=== PATIENT | male | born 1960 | race Caucasian/White ===

== ENCOUNTER 2017-10-27 09:51 | Day surgery (SDC) | payer OTHER ==
[~2017-10-27] VITALS: Ht 182.9 cm; Wt 66.9 kg
[~2017-10-27 09:51] MED LIST: ACET325 PO; ACET500; ACET500 PO; ALBU.083IS; ALBU3IS INH; ALBU90I; ALBU90OI; ALBU90OI INH; ALBU90OI61 INH; AMIT25 PO; AMOCLA875 PO; AZIT250 PO; Advair Hfa 230-12 GM; BACL10; BACL10 PO; BISA5EC PO; CEPH500 PO; CIPDEXSU OT; COMBIVENT RESPIM4 GM INH; CRUTCH4 USE; CULTURELLE1 EACH PO; CYCL10; CYCL10 PO; CYCL25; Colace100 MG PO; DIAZ5 PO; DICL250 PO; DIVA500EC PO; DOXY100 PO; DULO60; DULO60 PO; Dazidox10 MG PO; ENOX40I SC; EPIPEN0.3 MG/0.3; Esgic Tablet1 EACH PO; FIBE4P PO; FLUSAL2505 INH; GABA100 PO; HYDACE10B PO; HYDACE5 PO; HYDHOMSY PO; HYDPAM50 PO; HYDR-86 PO; Hydrocodone-Ap1 EA20 PO; IBUP600 PO; IBUP800; IBUP800 PO; IPRA.06NI; LAVAP17G PO; LEVE500 PO; LEVFLO500 PO; LEVO750 PO; LORA1 PO; META800 PO; METH10 PO; MULVITMIND PO; Milk Of Ma800 MG/5 M PO; NAPR500 PO; NAPR500ERA PO; NAPR550 PO; NEOPOLHYDS OT; NICO21TP TOP; NICO7 TOP; Norco 5-325 Ta1 EACH PO; OFLO.3OTSO AU; OXYACE5T PO; OXYACE7.5T PO; OXYC10ER; OXYC10ER PO; OXYC10TA19 PO; OXYC15ER PO; OXYCODONE HCL E10 MG PO; Omeprazole20 M1 PO; PANT40 PO; PENVK500 PO; PRED10 PO; PRED20 PO; PREG100 PO; PREG150 PO; PREG200 PO; PREG50 PO; PREVNAR; PROACE100 PO; PROM25 PO; Prednisone20 MG PO; Pulmicort0.5 MG/2 M IH; ROBITUSSIN100 MG/5 M PO; ROXICODONE5 MG PO; RXCEPH500 PO; RXHYDACE PO; RXOXYACE PO; SACC250C PO; SPIRIVA RESPIMAT4 G1 INH; SULTRIDS PO; TIOT18; TOPI100 PO; TOPI25 PO; TOPIRAMATE ER200 MG PO; TRAACE PO; TRAM50 PO; TRAZ100 PO; TRAZ50; Ventolin Soln3 ML INH; Ventolin5 MG/1 ML; Ventolin5 MG/1 ML IH; Vibramycin100 MG PO; XARELTO15 MG PO; Zithromax250 MG PO; Zosyn 4.54.5 GM/100 IV
[2017-10-27] MEDS ORDERED: BACL10 (10:16)
== END 2017-10-27 11:59 | disposition home or self-care (01) ==
LOC: ORSCSDS 09:51
PROVIDERS: Internal Medicine Gastroenterology
PROC: 0DBN8ZX Excision of Sigmoid Colon, Via Natural or Artificial Opening Endoscopic, Diagnostic (ICD-10-PCS; principal; 2017-10-27 11:15)
PROC: 0DBH8ZX Excision of Cecum, Via Natural or Artificial Opening Endoscopic, Diagnostic (ICD-10-PCS; principal; 2017-10-27 11:15)
DX: Z12.11 Encounter for screening for malignant neoplasm of colon (principal); D12.0 Benign neoplasm of cecum; K63.5 Polyp of colon; K64.8 Other hemorrhoids; N40.0 Benign prostatic hyperplasia without lower urinary tract symptoms; J44.9 Chronic obstructive pulmonary disease, unspecified; G40.909 Epilepsy, unspecified, not intractable, without status epilepticus; F32.9 Major depressive disorder, single episode, unspecified; F17.210 Nicotine dependence, cigarettes, uncomplicated; Z99.81 Dependence on supplemental oxygen; Z79.899 Other long term (current) drug therapy
CPT/HCPCS: 88305; J7120

== ENCOUNTER 2018-10-10 15:48 | Inpatient (IN) | payer OTHER ==
[~2018-10-10] VITALS: Ht 185.4 cm; Wt 64.8 kg
[2018-10-10 16:35] LABS: BASOPHILS ABSOLUTE AUTO 0.01 K/mm3 (0.00-0.23); BASOPHILS PERCENT AUTO 0 % (0-2); EOSINOPHILS ABSOLUTE AUTO 0.04 K/mm3 (0.00-0.68); EOSINOPHILS PERCENT AUTO 1 % (0-6); Hematocrit 50.7 % (37.0-53.0); IMMATURE GRAN ABSOLUTE AUTO 0.04 K/mm3 (0.00-0.10); IMMATURE GRAN PERCENT AUTO 1 % (0-1); LYMPHOCYTES ABSOLUTE AUTO 1.09 K/mm3 (0.84-5.20); LYMPHOCYTES PERCENT AUTO 16 % (21-46); MONOCYTES ABSOLUTE AUTO 0.82 K/mm3 (0.16-1.47); MONOCYTES PERCENT AUTO 12 % (4-13); Mean Corpuscular HGB 32.7 pg (26.0-34.0); Mean Corpuscular HGB Conc 31.6 g/dL (31.5-36.5); Mean Corpuscular Volume 104 fL (80-100); Mean Platelet Volume 9.6 fL (9.1-12.4); NEUTROPHILS ABSOLUTE AUTO 5.01 K/mm3 (1.96-9.15); NEUTROPHILS PERCENT AUTO 72 % (41-73); Platelet Count 172 K/mm3 (150-400); RDW Coefficient Variation 13.7 % (11.7-14.2); Red Blood Cell Count 4.89 M/mm3 (4.30-5.90); White Blood Cell Count 7.01 K/mm3 (4.00-11.30)
[2018-10-10 17:13] LABS: Alanine Aminotransfer (ALT/SGP 196 U/L (12-78); Albumin, Blood 3.1 g/dL (3.4-5.0); Albumin/Globulin Ratio 0.7 (0.8-1.8); Alk Phos 74 U/L (50-136); Anion Gap 4 mmol/L (6-16); Aspartate Aminotrans (AST/SGOT 103 U/L (12-37); Bilirubin, Total 0.4 mg/dL (0.1-1.0); Blood Urea Nitrogen 16 mg/dL (8-24); Bun/Creatinine Ratio 20.5 (12.0-20.0); CO2, Blood 42 mmol/L (21-32); Calcium, Blood 9.5 mg/dL (8.5-10.1); Chloride, Blood 93 mmol/L (98-108); Creatinine, Blood 0.78 mg/dL (0.60-1.20); Globulin, Blood 4.7 g/dL (2.2-4.0); Glomerular Filtration Rate >60 (60-); Glucose, Blood 94 mg/dL (70-99); Potassium, Blood 5.4 mmol/L (3.5-5.5); Sodium, Blood 139 mmol/L (136-145); Total Protein, Blood 7.8 g/dL (6.4-8.2); Troponin I 0.024 ng/mL (0.000-0.040)
[2018-10-10 17:18] LABS: PCO2 Arterial 80.1 mmHg (35-45); PO2 Arterial 73.2 mmHg (80-100); pH Blood Arterial 7.36 (7.35-7.45)
[2018-10-10 17:33] LABS: Influenza A Negative (NEGATIVE); Influenza B Negative (NEGATIVE)
[2018-10-10] MEDS ORDERED: LEVE500 PO (18:38)
--- NOTE | 2018-10-11 06:47 | NUR ---
SHIFT SUMMARY PT SLEEPING IN ROOM RESTING COMFORTABLY. PT HAS HAD NO ACUTE CHANGES IN STATUS SINCE ARRIVAL. REMAINS ON O2 VIA NC AT 4L W/ SATS 89-91%. PT SLEPT T/O NIGHT. SOME DIAPHORESIS, BUT REMAINS AFEBRILE. DENIES ANY CHEST PAIN. PT REFUSED TO CHANGE INTO GOWN AND REMAINS IN OWN CLOTHING. EKG DONE THIS AM. NO ACUTE CHANGES NOTED. CALL LIGHT IN REACH. BED ALARM ON FOR SAFETY.
--- NOTE | 2018-10-11 10:23 | NUR ---
The pt has been sweaty and warm. Three extra blankets were removed from him this morning at the beginning of the shift; He was still sweaty with just a sheet and one blanket on him, but temperature was taken and measured 98.7 temporally. He states he does not feel like he has a fever; he feels cold.
--- NOTE | 2018-10-11 10:41 | NUR ---
The pt is sleeping, apparently comfortably. His mother Susannah Juarez is at the bedside and I spoke with her and answered her questions regarding the plan of care and the pt's condition. she states that the pt smoked yesterday, but that he has been cutting back and trying to quit.
--- NOTE | 2018-10-11 13:27 | NUR ---
Noted SpO2 of 83-86% while sleeping on 4 l/min O2 delivery via n.c. Awakened pt and asked him to deep breathe and cough. He did; moist, productive cough noted, but the pt swallowed the sputum so I did not evaluate its quality. SpO2 is now 88-90% while he is sleeping while on 5 l/min O2 delivery. He states that he feels cold, and I also noticed some intermittent fine tremors of his arms and hands. Skin is warm to the touch, temperature is 99.3 at this time. He has no other complaints than feeling " a little nippy". He is only wanting to sleep at this time.
--- NOTE | 2018-10-11 14:42 | NUR ---
Telephone report given to Christiano Lara RN at this time.
--- NOTE | 2018-10-11 15:31 | NUR ---
The pt was transferred to room 310 in the bed. He awakens easily, but wants to nap, he says. States that he will probably sleep through the night as well since he's been woken up so often. States he just haven't been feeling very well lately.
--- NOTE | 2018-10-11 17:06 | NUR ---
SHIFT SUMMARY. 1500 TRANSFER FROM PCU TO MEDICAL FLOOR. PT BROUGHT UP IN BED, BED IN ROOM MOVED OUT, NO MANUAL TRANSFER REQUIRED. PT IS ON 4L O2, SLEEPING HEAVILY, AWAKENS TO VERBAL STIMULATION, DIAPHORETIC. PT STATES THAT HE "SWEATS WHEN HE SLEEPS." 1730 PT SPO2 85-87% ON 6L O2 HUMIDIFIED NC, PT LAYING ON SIDE. PT INSTRUCTED TO COUGH, COUGH WAS DRY AND NON PRODUCTIVE. PT HOB ELEVATED TO 45 DEGREES, BREATHING SHALLOW, NO DISTRESS.
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
--- NOTE | 2018-10-12 18:12 | NUR ---
SHIFT SUMMARY PT HAS HAD NO ACUTE CHANGES THIS SHIFT, NO COMPLAINTS OF ANY KIND. PT HAS SLEPT T/O MOST OF SHIFT AND REFUSED MOST MEALS, BUT STATES HE IS FEELING BETTER. PT IS BEDRESTING AT THIS TIME, WILL CONT TO MONITOR UNTIL REPORT GIVEN TO JASMIN COLLINS.
--- NOTE | 2018-10-13 04:45 | NUR ---
SHIFT SUMMARY NO APPARENT ACUTE CHANGES NOTED SO FAR THIS SHIFT. PT APPEARED TO BE LESS AGITATED THIS NIGHT. ATTEMPTING TO COUPLE CARE TO REDUCE WAKING PT APPEARS TO BE IMPROVING MOOD. PT WAS MUCH MORE ALERT THIS NIGHT THEN PREVIOUS WHEN ADMINISTERING NIGHT MEDICATIONS. PT HAS APPEARED TO SLEEP COMFORTABLY THROUGHOUT THE NIGHT. NO APPARENT SIGNS OF ACUTE DISTRESS. ABLE TO MAKE NEEDS KNOWN AND CALL LIGHT IN REACH.
[2018-10-13 05:51] LABS: Anion Gap 5 mmol/L (6-16); Blood Urea Nitrogen 25 mg/dL (8-24); Bun/Creatinine Ratio 35.2 (12.0-20.0); CO2, Blood 33 mmol/L (21-32); Calcium, Blood 8.6 mg/dL (8.5-10.1); Chloride, Blood 102 mmol/L (98-108); Creatinine, Blood 0.71 mg/dL (0.60-1.20); Glomerular Filtration Rate >60 (60-); Glucose, Blood 132 mg/dL (70-99); Potassium, Blood 4.5 mmol/L (3.5-5.5); Sodium, Blood 140 mmol/L (136-145)
--- NOTE | 2018-10-13 17:09 | NUR ---
SHIFT SUMMARY PT HAS HAD NO ACUTE CHANGES THIS SHIFT, NO COMPLAINTS OF ANY KIND. PT HAS SLEPT T/O MOST OF SHIFT, IS BEDRESTING AT THIS TIME- WILL CONT TO MONITOR UNTIL REPORT GIVEN TO JASMIN COLLINS.
--- NOTE | 2018-10-14 05:27 | NUR ---
SHIFT SUMMARY ASSESSMENT HAS REMAINED UNCHANGED. O2 IN PLACE, RESP E/U. PT REPORTS SOB WITH EXERTION. DENIES AT REST. LUNGS WITH WHEEZES T/O. BREATHING TREATMENTS SCHEDULED. PER RT, PT REFUSES MOST OF THEM. BIOX IN PLACE, SATS WNL. PT MEDICATED FOR CHRONIC BACK PAIN X1. PT SLEPT MOST OF THE NIGHT. WILL CONTINUE TO MONITOR AND REPORT TO ONCOMING RN.
--- NOTE | 2018-10-14 17:35 | NUR ---
SHIFT SUMMARY PT HAS HAD NO ACUTE CHANGES THIS SHIFT, NO COMPLAINTS OF ANY KIND. PT HAS SLEPT T/O MOST OF SHIFT, STATES HE IS FEELING BETTER. PT IS SLEEPING AT THIS TIME, WILL CONT TO MONITOR UNTIL REPORT GIVEN TO JASMIN COLLINS.
--- NOTE | 2018-10-15 04:09 | NUR ---
SHIFT SUMMARY PT A&OX3. COMPLAINTS OF LOWER BACK PAIN. MEDICATED PAIN PER EMAR WITH GOOD RELIEF. CONTINUES TO COUGH UP THIN, GREENISH SPUTUM. ON 4L VIA NC. SATURATING >90%. USED URINAL TO VOID. SLEPT WELL T/O SHIFT. WILL CONTINUE TO MONITOR.
[2018-10-15 05:50] LABS: BASOPHILS ABSOLUTE AUTO 0.01 K/mm3 (0.00-0.23); BASOPHILS PERCENT AUTO 0 % (0-2); EOSINOPHILS ABSOLUTE AUTO 0.08 K/mm3 (0.00-0.68); EOSINOPHILS PERCENT AUTO 1 % (0-6); Hematocrit 46.7 % (37.0-53.0); Hemoglobin 15.8 g/dL (13.5-17.5); IMMATURE GRAN ABSOLUTE AUTO 0.04 K/mm3 (0.00-0.10); IMMATURE GRAN PERCENT AUTO 0 % (0-1); LYMPHOCYTES ABSOLUTE AUTO 2.81 K/mm3 (0.84-5.20); LYMPHOCYTES PERCENT AUTO 30 % (21-46); MONOCYTES ABSOLUTE AUTO 0.71 K/mm3 (0.16-1.47); MONOCYTES PERCENT AUTO 8 % (4-13); Mean Corpuscular HGB 32.8 pg (26.0-34.0); Mean Corpuscular HGB Conc 33.8 g/dL (31.5-36.5); Mean Platelet Volume 9.5 fL (9.1-12.4); NEUTROPHILS ABSOLUTE AUTO 5.62 K/mm3 (1.96-9.15); NEUTROPHILS PERCENT AUTO 61 % (41-73); Platelet Count 193 K/mm3 (150-400); RDW Coefficient Variation 13.7 % (11.7-14.2); RDW Standard Deviation 48.6 fL (35.1-46.3); Red Blood Cell Count 4.81 M/mm3 (4.30-5.90); White Blood Cell Count 9.27 K/mm3 (4.00-11.30)
[2018-10-15 06:12] LABS: Anion Gap 4 mmol/L (6-16); Blood Urea Nitrogen 23 mg/dL (8-24); Bun/Creatinine Ratio 27.9 (12.0-20.0); CO2, Blood 32 mmol/L (21-32); Calcium, Blood 8.3 mg/dL (8.5-10.1); Chloride, Blood 100 mmol/L (98-108); Creatinine, Blood 0.82 mg/dL (0.60-1.20); Glomerular Filtration Rate >60 (60-); Glucose, Blood 83 mg/dL (70-99); Mean Corpuscular Volume 97 fL (80-100); Potassium, Blood 4.1 mmol/L (3.5-5.5); Sodium, Blood 136 mmol/L (136-145)
--- NOTE | 2018-10-15 11:36 | NUR ---
SHIFT SUMMARY/DC PT HAS HAD NO ACUTE CHANGES THIS SHIFT, MEDICATED 1X FOR CHRONIC BACK PAIN, NO OTHER COMPLAINTS OF ANY KIND. REVIEWED DC INSRTUCTIONS, EDUCATED THE IMPORTANCE OF HOME 02 COMPLIANCE, PT VERBALIZED UNDERSTANDING. PT IS WALKING IN HALLS-WAITING FOR MOM TO PICK HIM UP AT THIS TIME.
--- NOTE | 2018-10-15 15:30 | NUR ---
DC PT WALKED OUT FOR DC @ 1210 W/HOME O2 IN PLACE
== END 2018-10-15 12:49 | disposition home or self-care (01) | DRG 189 ==
LOC: ER 15:48 → PCU 19:18 → MEDS 10-11 15:00
PROVIDERS: Emergency Medicine; Hospitalist; Physician Assistant; ADMIT Internal Medicine
DX: J96.21 Acute and chronic respiratory failure with hypoxia (principal); G93.41 Metabolic encephalopathy; J44.1 Chronic obstructive pulmonary disease with (acute) exacerbation; J96.22 Acute and chronic respiratory failure with hypercapnia; G40.909 Epilepsy, unspecified, not intractable, without status epilepticus; G89.29 Other chronic pain; M54.9 Dorsalgia, unspecified; F17.210 Nicotine dependence, cigarettes, uncomplicated; F32.9 Major depressive disorder, single episode, unspecified; Z99.81 Dependence on supplemental oxygen; Z88.8 Allergy status to other drugs, medicaments and biological substances; Z88.6 Allergy status to analgesic agent; Z91.038 Other insect allergy status; Z79.891 Long term (current) use of opiate analgesic; Z79.899 Other long term (current) drug therapy
CPT/HCPCS: 36415; 36600; 71046; 80048; 80053; 82803; 83880; 84484; 85025; 87804; 93005; 93010; 94640; 94644; 94660; 94760; 94762; 96361; 96374; 97161; 97530; 99285-25; J1650; J2930; J7120

== ENCOUNTER 2018-10-28 18:04 | Inpatient (IN) | payer OTHER ==
[~2018-10-28] VITALS: Ht 185.4 cm; Wt 69.0 kg
[2018-10-28 19:13] LABS: BASOPHILS ABSOLUTE AUTO 0.02 K/mm3 (0.00-0.23); BASOPHILS PERCENT AUTO 0 % (0-2); EOSINOPHILS ABSOLUTE AUTO 0.01 K/mm3 (0.00-0.68); EOSINOPHILS PERCENT AUTO 0 % (0-6); Hematocrit 49.7 % (37.0-53.0); Hemoglobin 15.3 g/dL (13.5-17.5); IMMATURE GRAN ABSOLUTE AUTO 0.12 K/mm3 (0.00-0.10); IMMATURE GRAN PERCENT AUTO 1 % (0-1); LYMPHOCYTES ABSOLUTE AUTO 0.39 K/mm3 (0.84-5.20); LYMPHOCYTES PERCENT AUTO 2 % (21-46); MONOCYTES PERCENT AUTO 8 % (4-13); Mean Corpuscular HGB 33.6 pg (26.0-34.0); Mean Corpuscular HGB Conc 30.8 g/dL (31.5-36.5); NEUTROPHILS ABSOLUTE AUTO 15.13 K/mm3 (1.96-9.15); NEUTROPHILS PERCENT AUTO 89 % (41-73); NRBC ABSOLUTE 0.02 K/mm3 (0.00-0.02); NRBC Auto 0.1 /100 WBC (0.0-0.2); RDW Coefficient Variation 13.7 % (11.7-14.2); RDW Standard Deviation 56.9 fL (35.1-46.3); Red Blood Cell Count 4.56 M/mm3 (4.30-5.90); White Blood Cell Count 16.97 K/mm3 (4.00-11.30)
[2018-10-28 19:16] LABS: Mean Corpuscular Volume 109 fL (80-100); Mean Platelet Volume 10.9 fL (9.1-12.4); Platelet Count 79 K/mm3 (150-400)
[2018-10-28 19:31] LABS: Alanine Aminotransfer (ALT/SGP 29 U/L (12-78); Albumin, Blood 3.3 g/dL (3.4-5.0); Albumin/Globulin Ratio 0.8 (0.8-1.8); Alk Phos 89 U/L (50-136); Anion Gap 7 mmol/L (6-16); Aspartate Aminotrans (AST/SGOT 31 U/L (12-37); Bilirubin, Total 0.4 mg/dL (0.1-1.0); Blood Urea Nitrogen 18 mg/dL (8-24); Bun/Creatinine Ratio 13.8 (12.0-20.0); CO2, Blood 33 mmol/L (21-32); Chloride, Blood 101 mmol/L (98-108); Ethanol (Alcohol), Blood, Med <3 mg/dL; Glomerular Filtration Rate >60 (60-); Glucose, Blood 176 mg/dL (70-99); Potassium, Blood 4.8 mmol/L (3.5-5.5); Sodium, Blood 141 mmol/L (136-145); Total Protein, Blood 7.3 g/dL (6.4-8.2); Troponin I 0.259 ng/mL (0.000-0.040)
[2018-10-28 20:45] LABS: PCO2 Arterial 46.1 mmHg (35-45); PO2 Arterial 60.8 mmHg (80-100); pH Blood Arterial 7.43 (7.35-7.45)
[2018-10-28 21:02] LABS: Source, Urine Catheter
[2018-10-28 21:03] LABS: U Amphetamine Screen Not Detected; U Barbituate Screen Not Detected; U Benzodiazapine Screen Not Detected; U Buprenorphine Screen Not Detected; U Cannabinoids Screen Not Detected; U Cocaine Screen Not Detected; U Methadone Screen Not Detected; U Methamphetamine Screen Not Detected; U Opiates Screen Not Detected; U Oxycodone Screen DETECTED; U Phencyclidine Screen Not Detected
[2018-10-28 21:04] LABS: Bilirubin, Urine Neg (Neg); Blood, Urine 2+ (Neg); Glucose Qualitative, Urine 2+ (Neg); Ketones, Urine Neg (Neg); Leukocyte Esterase, Urine Neg (Neg); Nitrite, Urine Neg (Neg); Protein, Urine 2+ (Neg); U Propoxyphene Screen Not Detected; Urobilinogen, Urine NORM (Normal)
[2018-10-28 21:05] LABS: Appearance, Urine Clear (Clear); Color, Urine Yellow (P-Yellow)
[2018-10-28 21:11] LABS: Amorphous Light (0-Heavy); Bacteria Few /hpf; Mucus Light (0-Heavy); Red Blood Cells, Urine 0-2 /hpf (0-2); Squamous Epithelial Cells Few /hpf (Few); White Blood Cells, Urine Rare /hpf (0-5)
[2018-10-28 22:21] LABS: Valproic Acid 21.4 ug/mL (50.0-100.0)
[2018-10-28 22:44] LABS: Creatine Kinase MB 9.7 ng/mL (0.0-3.6); Creatine Kinase MB Index 2.4 (0.0-4.0)
[2018-10-28 23:14] LABS: Influenza A Negative (NEGATIVE); Influenza B Negative (NEGATIVE)
--- NOTE | 2018-10-29 01:13 | NUR ---
ASSUMING CARE RECEIVED PT REPORT FROM KARINA CHIRINOS IN THE ER. PT IS ADMITTED DUE TO RESP FAILURE RELATED TO A POSSIBLE OPIOID OD. PER REPORT PT WAS PROVIDED NARCAN BY EMS AND IN THE ER WITH SOME EFFECT. PT IS MINIMALLY RESPONSIVE AND WILL ONLY RESPOND WITH A LARGE AMOUNT OF STIMULI. PT IS UNABLE TO ANSWER QUESTIONS AT THIS TIME. PT WILL STATE THAT HE WANTS TO "BE LEFT ALONE" WITH MOST CARES. PT IS RECEIVING 2 L BOLUSES NS AT THE TIME OF ARRIVAL TO UNIT FOR A TOTAL OF 3L. PT IS ON 3L O2 VIA NC AND IS CURRENTLY SATTING IN THE HIGH 90'S. PT RESPIRATORY RATE IS IN THE 14-20 RANGE. PT HAS A MCCAIN TEMP PROBE IN PLACE AT THIS TIME. PT TEMPERATURE IS 102.2 AT THE TIME OF ARRIVAL TO UNIT. PT WAS PROVIDED RECTAL TYLENOL IN ER JUST PRIOR TO ARRIVAL TO THE UNIT. PT HAS FANS IN PLACE FOR ADDITIONAL COOLING. SHORTLY AFTER ARRIVAL PT TEMP INCREASED TO 102.4. AT THE TIME OF THIS NOTE PT TEMPERATURE DECREASED TO 102.0. PT HR AND BP ARE STABLE AT THIS TIME. ASSUMING CARE OF PT AT THE TIME OF ARRIVAL TO THE UNIT. WILL CONTINUE TO MONITOR PT.
[2018-10-29 04:20] LABS: BASOPHILS ABSOLUTE AUTO 0.01 K/mm3 (0.00-0.23); BASOPHILS PERCENT AUTO 0 % (0-2); EOSINOPHILS PERCENT AUTO 0 % (0-6); Hematocrit 41.8 % (37.0-53.0); Hemoglobin 13.1 g/dL (13.5-17.5); IMMATURE GRAN ABSOLUTE AUTO 0.04 K/mm3 (0.00-0.10); IMMATURE GRAN PERCENT AUTO 0 % (0-1); LYMPHOCYTES ABSOLUTE AUTO 0.69 K/mm3 (0.84-5.20); LYMPHOCYTES PERCENT AUTO 5 % (21-46); MONOCYTES ABSOLUTE AUTO 0.66 K/mm3 (0.16-1.47); MONOCYTES PERCENT AUTO 5 % (4-13); Mean Corpuscular HGB 33.3 pg (26.0-34.0); Mean Corpuscular HGB Conc 31.3 g/dL (31.5-36.5); Mean Platelet Volume 10.6 fL (9.1-12.4); NEUTROPHILS PERCENT AUTO 89 % (41-73); NRBC ABSOLUTE 0.02 K/mm3 (0.00-0.02); NRBC Auto 0.2 /100 WBC (0.0-0.2); Platelet Count 84 K/mm3 (150-400); RDW Coefficient Variation 13.8 % (11.7-14.2); RDW Standard Deviation 54.8 fL (35.1-46.3); Red Blood Cell Count 3.93 M/mm3 (4.30-5.90)
[2018-10-29 04:24] LABS: Mean Corpuscular Volume 106 fL (80-100)
[2018-10-29 04:38] LABS: Alanine Aminotransfer (ALT/SGP 19 U/L (12-78); Albumin, Blood 2.6 g/dL (3.4-5.0); Albumin/Globulin Ratio 0.7 (0.8-1.8); Alk Phos 64 U/L (50-136); Anion Gap 6 mmol/L (6-16); Aspartate Aminotrans (AST/SGOT 38 U/L (12-37); Bilirubin, Total 0.2 mg/dL (0.1-1.0); Blood Urea Nitrogen 13 mg/dL (8-24); Bun/Creatinine Ratio 18.3 (12.0-20.0); CO2, Blood 28 mmol/L (21-32); Calcium, Blood 8.2 mg/dL (8.5-10.1); Chloride, Blood 110 mmol/L (98-108); Creatinine, Blood 0.71 mg/dL (0.60-1.20); Globulin, Blood 3.6 g/dL (2.2-4.0); Glomerular Filtration Rate >60 (60-); Glucose, Blood 123 mg/dL (70-99); Sodium, Blood 144 mmol/L (136-145); Total Protein, Blood 6.2 g/dL (6.4-8.2)
[2018-10-29 04:56] LABS: PCO2 Arterial 59.9 mmHg (35-45); PO2 Arterial 76.3 mmHg (80-100); pH Blood Arterial 7.38 (7.35-7.45)
--- NOTE | 2018-10-29 05:49 | NUR ---
SHIFT SUMMARY NOTE PT HAS REMAINED MINIMALLY RESPONSIVE SINCE ARRIVAL TO THE UNIT. PT WILL AROUSE AND RESPOND IN SINGLE WORD OR SHORT ANSWERS WITH INCREASED STIMULATION. PT REPONSES ARE TYPICALLY PT SAYING "LEAVE ME ALONE" OR GARBLED RESPONSES. PT HAS REMAINED ON 3L O2 VIA NC THROUGHT THE NIGHT. PT SPO2 HAS MAINTAINED IN THE MID TO HIGH 90'S THROUGH THE NIGHT. PT TEMPERATURE BEGAN TO DECREASE AND IS APPROX 99.9 AT THIS TIME. PT HAS NOT BEEN PROVIDED ANY ADDITIONAL DOSES OF TYLENOL AFTER ARRIVAL TO THE UNIT. PT HR AND BP HAVE REMAIEND STABLE THROUGH THE NIGHT. WILL REPORT OFF TO ONCOMING DAY SHIFT NURSE
--- NOTE | 2018-10-29 10:02 | NUR ---
pt very sleepy this am, he wakes when touched, but is very sleepy even when awake, he is irritable, lungs are wheezing t/o, resp even and unlabored sats in the mid 90's on 3 liters 02 via n/c, no cough noted, hrr, monitor in place running sr per monitor, see strip, +1 edema noted to b/l le, ppp+1, cap refill <3sec, vs stable, afebrile, iv sites are clear and patent, btx4 abd flat soft nontender, song cath in place draining yelllow urine, skin c/w/d, not really following commands or cooperating with assessment, did take a sip of water and his keppra and xeralto without diff, call light in reach. status has been changed to pcu, moving now to pcu 13, report given to Bobo COLLINS.
[2018-10-29 12:43] LABS: Valproic Acid 8.1 ug/mL (50.0-100.0)
[2018-10-29] MEDS ORDERED: PANT20 PO (13:51)
[2018-10-29] MEDS ORDERED: OMEPRAZOLE MAGN20 MG PO (13:52)
[2018-10-29] MEDS ORDERED: PREG200 PO (13:53)
[2018-10-29] MEDS ORDERED: D3-20002000 UNIT PO (13:53)
[2018-10-29] MEDS ORDERED: Coq-10100 MG PO (13:54)
[2018-10-29] MEDS ORDERED: MULTI VITAMIN1 EACH PO (13:55)
[2018-10-29] MEDS ORDERED: LEVE500 PO (13:55)
[2018-10-29] MEDS ORDERED: VARE1 PO (13:56)
[2018-10-29] MEDS ORDERED: TIOT18 INH (13:57)
--- NOTE | 2018-10-29 18:53 | NUR ---
ASSUMED CARE PT HAS HAD MENTAL CHANGES TO THE ASSESSMENT, VSS, PT IN NO PAIN, PT ABLE TO DO THREE STEP AMBULATION, PT ABLE TO FOLLOW COMMANDS, PT IS STILL SLEEPY
[2018-10-30 04:16] LABS: BASOPHILS ABSOLUTE AUTO 0.03 K/mm3 (0.00-0.23); BASOPHILS PERCENT AUTO 0 % (0-2); EOSINOPHILS ABSOLUTE AUTO 0.04 K/mm3 (0.00-0.68); EOSINOPHILS PERCENT AUTO 0 % (0-6); Hematocrit 36.7 % (37.0-53.0); Hemoglobin 11.9 g/dL (13.5-17.5); IMMATURE GRAN ABSOLUTE AUTO 0.05 K/mm3 (0.00-0.10); IMMATURE GRAN PERCENT AUTO 0 % (0-1); LYMPHOCYTES PERCENT AUTO 15 % (21-46); MONOCYTES PERCENT AUTO 10 % (4-13); Mean Corpuscular HGB 32.3 pg (26.0-34.0); Mean Corpuscular HGB Conc 32.4 g/dL (31.5-36.5); Mean Platelet Volume 10.9 fL (9.1-12.4); NEUTROPHILS ABSOLUTE AUTO 9.71 K/mm3 (1.96-9.15); NEUTROPHILS PERCENT AUTO 74 % (41-73); Platelet Count 112 K/mm3 (150-400); RDW Standard Deviation 51.4 fL (35.1-46.3); Red Blood Cell Count 3.68 M/mm3 (4.30-5.90); White Blood Cell Count 13.13 K/mm3 (4.00-11.30)
[2018-10-30 04:25] LABS: Mean Corpuscular Volume 100 fL (80-100)
[2018-10-30 04:43] LABS: Anion Gap 6 mmol/L (6-16); Blood Urea Nitrogen 11 mg/dL (8-24); Bun/Creatinine Ratio 16.2 (12.0-20.0); CO2, Blood 31 mmol/L (21-32); Calcium, Blood 8.1 mg/dL (8.5-10.1); Chloride, Blood 111 mmol/L (98-108); Creatinine, Blood 0.68 mg/dL (0.60-1.20); Glomerular Filtration Rate >60 (60-); Glucose, Blood 93 mg/dL (70-99); Potassium, Blood 3.7 mmol/L (3.5-5.5); Sodium, Blood 148 mmol/L (136-145)
--- NOTE | 2018-10-30 06:09 | NUR ---
SHIFT SUMMARY PT ADMITTED FOR RESPIRATORY FAILURE. PT CONTINUES ON IV ABX FOR SEPSIS OF UNKNOWN ORIGIN. HE IS SATTING LOW 90S ON RA, REFUSED TO WEAR ANY O2 LAST NIGHT. HE ALSO HAD A LOW GRADE TEMP BUT REFUSED ANY TYLENOL; THE ROOM WAS WARM SO THE HEAT WAS TURNED DOWN. PT IS PARTIALLY COOPERATIVE WITH CARES. HE IS STILL NPO. NO TELE. PT IS BEING TREATED FOR HIS PULMONARY EMBOLI WITH LOVENOX INJECTIONS. BED ALARM ON FOR IMPULSIVITY, BUT HIS MENTATION APPEARS CLEARER THIS MORNING. HE IS FATIGUED BUT ANSWERS QUESTIONS APPROPRIATELY. WILL CTM UNTIL PASS TO NEXT SHIFT.
--- NOTE | 2018-10-30 10:24 | NUR ---
NURSING PCU DAYSHIFT: Assumed care of pt at approx 0700. A/O, irritable though fairly cooperative w/care, impulsive at times. General weakness noted though able to ambulate w/one staff assist for line management only. Denies any pain/discomfort. Skin is fragile w/scattered bruising on UE's. No tele in place, HRR, no c/o CP/pressure, SBP 130's prior to a.m. meds, no noted edema. Respiratory status fairly stable, O2 sat low 90's on RA, denies dyspnea, occ moist/ENGINEERING GROUP LEADER cough. Abd SNT, minimal appetite, refused breakfast, voiding w/o difficulty. PIV x1, NS TKO. No s/s of acute distress at this time. Call light in reach though pt does not use appropriately, bed alarm set for safety purposes. Seen by PMD, new d/o received. Pt is anticipating possible discharge home this afternoon once lab results are received. Cont to monitor for any changes.
[2018-10-30] MEDS ORDERED: DIVA500ER PO (13:06)
--- NOTE | 2018-10-30 13:11 | NUR ---
NURSING PCU DISCHARGE SUMMARY: No acute changes noted t/o the shift. Lab results received and reviewed by PMD, discharge home d/o received. Pt has verbalized understanding of all written and verbal discharge instructions. PIV dc'd w/cath intact. Rx's being called to pharmacy in [place] per pt request. Pt will be escorted from unit via w/c when pt is dressed and ready. No s/s of acute distress at this time, cont to monitor until discharge is complete.
[2018-10-30] MEDS ORDERED: DULO60 PO (13:12)
[2018-10-30] MEDS ORDERED: XARELTO15 MG PO (13:13)
[2018-10-30] MEDS ORDERED: LEVFLO500 PO (13:14)
== END 2018-10-30 13:40 | disposition home or self-care (01) | DRG 917 ==
LOC: ER 18:04 → PCU 21:47 → ICUW 21:47 → ICUE 23:22 → PCU 10-29 09:57
PROVIDERS: Emergency Medicine; Hospitalist; ADMIT Internal Medicine
DX: T40.2X1A Poisoning by other opioids, accidental (unintentional), initial encounter (principal); I26.99 Other pulmonary embolism without acute cor pulmonale; J96.01 Acute respiratory failure with hypoxia; J44.1 Chronic obstructive pulmonary disease with (acute) exacerbation; N17.9 Acute kidney failure, unspecified; G93.40 Encephalopathy, unspecified; Z99.81 Dependence on supplemental oxygen; G40.909 Epilepsy, unspecified, not intractable, without status epilepticus; Y92.9 Unspecified place or not applicable; F17.210 Nicotine dependence, cigarettes, uncomplicated; R40.2413 Glasgow coma scale score 13-15, at hospital admission; I10 Essential (primary) hypertension; F32.9 Major depressive disorder, single episode, unspecified; R25.1 Tremor, unspecified; G89.29 Other chronic pain; M54.9 Dorsalgia, unspecified; Z79.899 Other long term (current) drug therapy; Z88.6 Allergy status to analgesic agent; Z88.8 Allergy status to other drugs, medicaments and biological substances; Z91.030 Bee allergy status
CPT/HCPCS: 36415; 36600; 51702; 70450; 71045; 71260; 80048; 80053; 80164; 81001; 82550; 82553; 82803; 83605; 83880; 84145; 84146; 84484; 85025; 87040; 87804; 93005; 93010; 94640; 94644; 96361; 96365; 96366; 96367; 96375; 99285-25; G0480; J0456; J0696; J1100; J1650; J1953; J2060; J2310; J7030; J7050; Q9967

== ENCOUNTER → 2020-07-02 | Outpatient (CLI) | payer OTHER ==
[~2020-07-02] MED LIST changes: +Coq-10100 MG PO; +D3-20002000 UNIT PO; +DIVA500ER PO; +MULTI VITAMIN1 EACH PO; +OMEPRAZOLE MAGN20 MG PO; +PANT20 PO; +TIOT18 INH; +VARE1 PO
[2020-07-02 13:43] LABS: BASOPHILS ABSOLUTE AUTO 0.02 K/mm3 (0.00-0.23); BASOPHILS PERCENT AUTO 0 % (0-2); EOSINOPHILS ABSOLUTE AUTO 0.07 K/mm3 (0.00-0.68); EOSINOPHILS PERCENT AUTO 1 % (0-6); Hematocrit 48.1 % (37.0-53.0); Hemoglobin 15.2 g/dL (13.5-17.5); IMMATURE GRAN ABSOLUTE AUTO 0.03 K/mm3 (0.00-0.10); IMMATURE GRAN PERCENT AUTO 0 % (0-1); LYMPHOCYTES ABSOLUTE AUTO 1.27 K/mm3 (0.84-5.20); LYMPHOCYTES PERCENT AUTO 17 % (21-46); MONOCYTES ABSOLUTE AUTO 0.86 K/mm3 (0.16-1.47); MONOCYTES PERCENT AUTO 11 % (4-13); Mean Corpuscular HGB 32.7 pg (26.0-34.0); Mean Corpuscular HGB Conc 31.6 g/dL (31.5-36.5); Mean Corpuscular Volume 103 fL (80-100); NEUTROPHILS ABSOLUTE AUTO 5.34 K/mm3 (1.96-9.15); NEUTROPHILS PERCENT AUTO 70 % (41-73); Platelet Count 173 K/mm3 (150-400); RDW Coefficient Variation 14.9 % (11.7-14.2); RDW Standard Deviation 56.6 fL (35.1-46.3); Red Blood Cell Count 4.65 M/mm3 (4.30-5.90); White Blood Cell Count 7.59 K/mm3 (4.00-11.30)
[2020-07-02 13:45] LABS: Anion Gap Unable to Calculate mmol/L (6-16); Blood Urea Nitrogen 13 mg/dL (8-24); Bun/Creatinine Ratio 12.5 (12.0-20.0); CO2, Blood 42 mmol/L (21-32); Calcium, Blood 9.2 mg/dL (8.5-10.1); Chloride, Blood 100 mmol/L (98-108); Creatinine, Blood 1.04 mg/dL (0.60-1.20); Glomerular Filtration Rate >60 (60-); Glucose, Blood 167 mg/dL (70-99); Potassium, Blood 4.8 mmol/L (3.5-5.5); Sodium, Blood 141 mmol/L (136-145)
[2020-07-02 16:28] LABS: Troponin I <0.017 ng/mL (0.000-0.040)
== END ==
LOC: LAB SHORT 13:29 → LAB EV 13:29
PROVIDERS: Chiropractor
DX: R09.02 Hypoxemia (principal); R06.00 Dyspnea, unspecified
CPT/HCPCS: 80048; 83880; 84484; 85025; 85379

== ENCOUNTER → 2020-07-02 | Outpatient (CLI) | payer OTHER | END | disposition home or self-care (01) | LOC: LAB EV 15:14 → LAB SHORT 15:14 | DX: R06.00 Dyspnea, unspecified (principal); Z20.828 Contact with and (suspected) exposure to other viral communicable diseases | CPT/HCPCS: U0003 ==

== ENCOUNTER → 2021-03-08 | Outpatient (CLI) | payer OTHER ==
[2021-03-08 10:43] LABS: BASOPHILS ABSOLUTE AUTO 0.06 K/mm3 (0.00-0.23); BASOPHILS PERCENT AUTO 0 % (0-2); EOSINOPHILS PERCENT AUTO 1 % (0-6); Hemoglobin 15.7 g/dL (13.5-17.5); IMMATURE GRAN ABSOLUTE AUTO 0.05 K/mm3 (0.00-0.10); IMMATURE GRAN PERCENT AUTO 0 % (0-1); LYMPHOCYTES ABSOLUTE AUTO 2.37 K/mm3 (0.84-5.20); LYMPHOCYTES PERCENT AUTO 15 % (21-46); MONOCYTES ABSOLUTE AUTO 1.17 K/mm3 (0.16-1.47); MONOCYTES PERCENT AUTO 7 % (4-13); Mean Corpuscular HGB 33.1 pg (26.0-34.0); Mean Corpuscular HGB Conc 34.1 g/dL (31.5-36.5); Mean Corpuscular Volume 97 fL (80-100); Mean Platelet Volume 9.3 fL (9.1-12.4); NEUTROPHILS ABSOLUTE AUTO 12.09 K/mm3 (1.96-9.15); NEUTROPHILS PERCENT AUTO 76 % (41-73); Platelet Count 342 K/mm3 (150-400); RDW Coefficient Variation 13.2 % (11.7-14.2); RDW Standard Deviation 47.7 fL (35.1-46.3); Red Blood Cell Count 4.75 M/mm3 (4.30-5.90); White Blood Cell Count 15.84 K/mm3 (4.00-11.30)
[2021-03-08 10:54] LABS: Alanine Aminotransfer (ALT/SGP 14 U/L (12-78); Albumin, Blood 3.8 g/dL (3.4-5.0); Alk Phos 94 U/L (40-126); Anion Gap 7 mmol/L (6-16); Aspartate Aminotrans (AST/SGOT 10 U/L (12-37); Bilirubin, Total 0.3 mg/dL (0.1-1.0); Blood Urea Nitrogen 19 mg/dL (8-24); Bun/Creatinine Ratio 23.8 (12.0-20.0); CO2, Blood 32 mmol/L (21-32); Calcium, Blood 9.6 mg/dL (8.5-10.1); Chloride, Blood 104 mmol/L (98-108); Glomerular Filtration Rate >60 (60-); Glucose, Blood 111 mg/dL (70-99); Potassium, Blood 4.3 mmol/L (3.5-5.5); Sodium, Blood 143 mmol/L (136-145); Total Protein, Blood 7.8 g/dL (6.4-8.2)
[2021-03-08 10:55] LABS: Troponin I <0.017 ng/mL (0.000-0.040)
== END | disposition home or self-care (01) ==
LOC: LAB EV 10:37 → LAB SHORT 10:37
PROVIDERS: Physician Assistant
DX: R07.9 Chest pain, unspecified (principal)
CPT/HCPCS: 80053; 84484; 85025; 85379

== ENCOUNTER 2021-10-06 14:15 | Inpatient (IN) | payer OTHER ==
[~2021-10-06] VITALS: Ht 162.6 cm; Wt 63.0 kg
[2021-10-06 15:59] LABS: BASOPHILS ABSOLUTE AUTO 0.03 K/mm3 (0.00-0.23); BASOPHILS PERCENT AUTO 0 % (0-2); EOSINOPHILS PERCENT AUTO 0 % (0-6); Hematocrit 45.9 % (37.0-53.0); Hemoglobin 14.4 g/dL (13.5-17.5); IMMATURE GRAN ABSOLUTE AUTO 0.03 K/mm3 (0.00-0.10); IMMATURE GRAN PERCENT AUTO 0 % (0-1); LYMPHOCYTES ABSOLUTE AUTO 0.35 K/mm3 (0.84-5.20); LYMPHOCYTES PERCENT AUTO 3 % (21-46); MONOCYTES ABSOLUTE AUTO 1.25 K/mm3 (0.16-1.47); MONOCYTES PERCENT AUTO 12 % (4-13); Mean Corpuscular HGB 32.5 pg (26.0-34.0); Mean Corpuscular HGB Conc 31.4 g/dL (31.5-36.5); Mean Corpuscular Volume 104 fL (80-100); Mean Platelet Volume 10.3 fL (9.1-12.4); NEUTROPHILS ABSOLUTE AUTO 8.91 K/mm3 (1.96-9.15); NEUTROPHILS PERCENT AUTO 84 % (41-73); Platelet Count 180 K/mm3 (150-400); RDW Coefficient Variation 14.7 % (11.7-14.2); RDW Standard Deviation 57.1 fL (35.1-46.3); Red Blood Cell Count 4.43 M/mm3 (4.30-5.90); White Blood Cell Count 10.57 K/mm3 (4.00-11.30)
[2021-10-06 16:27] LABS: Troponin I 0.326 ng/mL (0.000-0.040)
[2021-10-06 16:33] LABS: Influenza A, PCR NEGATIVE (NEGATIVE); Influenza B, PCR NEGATIVE (NEGATIVE); Resp Syncytial Virus, PCR NEGATIVE (NEGATIVE); SARS-Cov-2 (COVID-19) PCR, MMC NEGATIVE (NEGATIVE)
[2021-10-06 17:00] LABS: Albumin, Blood 2.8 g/dL (3.4-5.0); Albumin/Globulin Ratio 0.7 (0.8-1.8); Bilirubin, Total 0.6 mg/dL (0.1-1.0); Bun/Creatinine Ratio 19.3 (12.0-20.0); Calcium, Blood 9.2 mg/dL (8.5-10.1); Creatinine, Blood 2.12 mg/dL (0.60-1.20); Total Protein, Blood 6.8 g/dL (6.4-8.2)
[2021-10-06 20:32] LABS: International Normalized Ratio 1.18; Prothrombin Time Results 12.3 Sec (9.7-11.5)
[2021-10-06 21:34] LABS: Source, Urine Clean Catch
[2021-10-06 21:37] LABS: Appearance, Urine Clear (Clear); Bilirubin, Urine Neg (Neg); Blood, Urine 4+ (Neg); Color, Urine Yellow (P-Yellow); Glucose Qualitative, Urine Neg (Neg); Ketones, Urine Neg (Neg); Leukocyte Esterase, Urine Neg (Neg); Nitrite, Urine Neg (Neg); Protein, Urine 2+ (Neg); Urobilinogen, Urine NORM (Normal)
[2021-10-06 21:47] LABS: Amorphous Light (0-Heavy); Bacteria Rare /hpf; Red Blood Cells, Urine Rare /hpf (0-2); Squamous Epithelial Cells Not Seen /hpf (Few); White Blood Cells, Urine Not Seen /hpf (0-5)
[2021-10-06 22:05] LABS: U Amphetamine Screen Not Detected; U Barbituate Screen Not Detected; U Benzodiazapine Screen Not Detected; U Buprenorphine Screen Not Detected; U Cannabinoids Screen Not Detected; U Cocaine Screen Not Detected; U Methadone Screen Not Detected; U Methamphetamine Screen Not Detected; U Opiates Screen Not Detected; U Oxycodone Screen DETECTED; U Phencyclidine Screen Not Detected; U Propoxyphene Screen Not Detected
[2021-10-07 06:18] LABS: BASOPHILS ABSOLUTE AUTO 0.09 K/mm3 (0.00-0.23); BASOPHILS PERCENT AUTO 1 % (0-2); Hematocrit 42.1 % (37.0-53.0); Hemoglobin 13.3 g/dL (13.5-17.5); LYMPHOCYTES ABSOLUTE AUTO 0.68 K/mm3 (0.84-5.20); LYMPHOCYTES PERCENT AUTO 5 % (21-46); MONOCYTES ABSOLUTE AUTO 0.91 K/mm3 (0.16-1.47); MONOCYTES PERCENT AUTO 7 % (4-13); Mean Corpuscular HGB 32.4 pg (26.0-34.0); Mean Corpuscular HGB Conc 31.6 g/dL (31.5-36.5); Mean Corpuscular Volume 102 fL (80-100); Mean Platelet Volume 10.4 fL (9.1-12.4); Platelet Count 130 K/mm3 (150-400); RDW Coefficient Variation 14.7 % (11.7-14.2); RDW Standard Deviation 55.8 fL (35.1-46.3); Red Blood Cell Count 4.11 M/mm3 (4.30-5.90); White Blood Cell Count 13.75 K/mm3 (4.00-11.30)
[2021-10-07 06:22] LABS: EOSINOPHILS ABSOLUTE AUTO 0.07 K/mm3 (0.00-0.68); EOSINOPHILS PERCENT AUTO 1 % (0-6); IMMATURE GRAN ABSOLUTE AUTO 0.08 K/mm3 (0.00-0.10); IMMATURE GRAN PERCENT AUTO 1 % (0-1); NEUTROPHILS ABSOLUTE AUTO 11.92 K/mm3 (1.96-9.15); NEUTROPHILS PERCENT AUTO 87 % (41-73)
[2021-10-07 07:06] LABS: Alanine Aminotransfer (ALT/SGP 1915 U/L (12-78); Albumin, Blood 2.2 g/dL (3.4-5.0); Albumin/Globulin Ratio 0.6 (0.8-1.8); Alk Phos 66 U/L (50-136); Anion Gap 3 mmol/L (6-16); Aspartate Aminotrans (AST/SGOT 2234 U/L (12-37); Bilirubin, Total 0.5 mg/dL (0.1-1.0); Blood Urea Nitrogen 34 mg/dL (8-24); Bun/Creatinine Ratio 29.6 (12.0-20.0); CO2, Blood 40 mmol/L (21-32); Calcium, Blood 8.5 mg/dL (8.5-10.1); Chloride, Blood 105 mmol/L (98-108); Creatinine, Blood 1.15 mg/dL (0.60-1.20); Globulin, Blood 3.5 g/dL (2.2-4.0); Glomerular Filtration Rate >60 (60-); Glucose, Blood 97 mg/dL (70-99); Potassium, Blood 5.2 mmol/L (3.5-5.5); Sodium, Blood 148 mmol/L (136-145); Total Protein, Blood 5.7 g/dL (6.4-8.2)
[2021-10-07 10:25] LABS: PCO2 Arterial 79.6 mmHg (35-45); PO2 Arterial 63.4 mmHg (80-100); pH Blood Arterial 7.37 (7.35-7.45)
[2021-10-07 13:47] LABS: Adenovirus Not Detected (NOT DETECT); Coronavirus 229E Not Detected (NOT DETECT); Coronavirus HKU1 Not Detected (NOT DETECT); Coronavirus NL63 Not Detected (NOT DETECT); Coronavirus OC43 Not Detected (NOT DETECT); Human Metapneumovirus Not Detected (NOT DETECT); SARS-Cov-2 (COVID-19), BioFire Not Detected (NOT DETECT)
[2021-10-07 13:48] LABS: Bordetella pertussis Not Detected (NOT DETECT); Chlamydophila pneumoniae Not Detected (NOT DETECT); Human Rhinovirus/Enterovirus Not Detected (NOT DETECT); Influenza A/2009-H1 Not Detected (NOT DETECT); Influenza A/H1 Not Detected (NOT DETECT); Influenza A/H3 Not Detected (NOT DETECT); Influenza B Not Detected (NOT DETECT); Mycoplasma pneumoniae Not Detected (NOT DETECT); Parainfluenza Virus 1 Not Detected (NOT DETECT); Parainfluenza Virus 2 Not Detected (NOT DETECT); Parainfluenza Virus 3 Not Detected (NOT DETECT); Parainfluenza Virus 4 Not Detected (NOT DETECT); Respiratory Syncytial Virus Not Detected (NOT DETECT)
--- NOTE | 2021-10-07 17:00 | NUR ---
UPDATE: Pt getting combative and aggitated. Provider called and notified. Instructed RN to titrate down narcan.
--- NOTE | 2021-10-07 18:35 | NUR ---
UPDATE: Hospitalist called regarding pt's pain and this RN's concern for optiate withdrawal. No answer; message left asking for return call.
--- NOTE | 2021-10-07 19:02 | NUR ---
END OF SHIFT SUMMARY: Pt confused; intermittantly aggitated and combative since arrival on unit. Narcan was titrated off. Pt alert and verbally assaultive to RN. He is producing thick, yellow sputum. Pt had one episode of incontinence; PVR of 206 after unmeasured output.
--- NOTE | 2021-10-07 22:15 | NUR ---
ASSUMED CARE AT 1900 PATIENT IS ALERT AND ORIENTED TO SELF ONLY. REPEATS SELF AND NONSENSICLE, YELLING OUT. MOVES ALL EXTREMETIES. BILATERAL WRIST RESTRAINTS IN PLACE, PATIENT STILL MANAGES TO PULL OXYGEN AND OTHER CORDS OFF. 02 SATS 93% ON 15L VIA OXIMYZER. SR @80s, AND BP STABLE. PULSE STRONG TO RIGHT LOWER EXTREMETY, WHICH IS WRAPPED WITH BARBARA WRAP. MEDICATED FOR BACK PAIN PER EMAR. PATIENT TO CT AT START OF SHIFT. LINEN CHANGED AND PATIENT REPOSITIONED. CALLED HOSPITALIST D/T PATIENT BEING AGITATED, YELLING OUT AND GETTING OUT OF RESTRAINTS, AND PULLING AT LINES, HALDOL GIVEN PER EMAR. PATIENT REMAINED AGITATED, GOT OUT OF RESTRAINTS AGAIN AND PULLED IV OUT. NEW ORDERS FOR ATIVAN, WILL MEDICATE PER EMAR. CONSULT CALLED TO ANSWERING SERVICE. SEE SHIFT ASSESSMENT FOR MORE DETAIL.
[2021-10-08 04:11] LABS: Hematocrit 36.4 % (37.0-53.0); Hemoglobin 11.9 g/dL (13.5-17.5); Mean Corpuscular HGB 32.3 pg (26.0-34.0); Mean Corpuscular HGB Conc 32.7 g/dL (31.5-36.5); Mean Corpuscular Volume 99 fL (80-100); Mean Platelet Volume 10.8 fL (9.1-12.4); Platelet Count 126 K/mm3 (150-400); RDW Coefficient Variation 14.7 % (11.7-14.2); RDW Standard Deviation 53.7 fL (35.1-46.3); Red Blood Cell Count 3.68 M/mm3 (4.30-5.90); White Blood Cell Count 11.57 K/mm3 (4.00-11.30)
[2021-10-08 04:46] LABS: Albumin, Blood 1.7 g/dL (3.4-5.0); Albumin/Globulin Ratio 0.4 (0.8-1.8); Alk Phos 54 U/L (50-136); Anion Gap 1 mmol/L (6-16); Aspartate Aminotrans (AST/SGOT 741 U/L (12-37); Bilirubin, Total 0.5 mg/dL (0.1-1.0); Blood Urea Nitrogen 27 mg/dL (8-24); Bun/Creatinine Ratio 33.7 (12.0-20.0); CO2, Blood 42 mmol/L (21-32); Calcium, Blood 8.7 mg/dL (8.5-10.1); Chloride, Blood 104 mmol/L (98-108); Globulin, Blood 3.8 g/dL (2.2-4.0); Glomerular Filtration Rate >60 (60-); Glucose, Blood 129 mg/dL (70-99); Magnesium, Blood 2.4 mg/dL (1.6-2.4); Phosphorus, Blood 1.5 mg/dL (2.5-4.9); Potassium, Blood 3.8 mmol/L (3.5-5.5); Sodium, Blood 147 mmol/L (136-145); Total Protein, Blood 5.5 g/dL (6.4-8.2)
[2021-10-08 04:54] LABS: Alanine Aminotransfer (ALT/SGP 1134 U/L (12-78)
[2021-10-08 05:39] LABS: BAND PERCENT MAN 28 % (0-8); BASOPHILS PERCENT MAN 0 % (0-2); EOSINOPHILS PERCENT MAN 0 % (0-6); LYMPHOCYTES ABSOLUTE MAN 0.69 K/mm3 (0.84-5.20); LYMPHOCYTES PERCENT MAN 6 % (21-46); MONOCYTES PERCENT MAN 13 % (4-13); NEUTROPHILS ABSOLUTE MAN 9.37 K/mm3 (1.96-9.15); SEG NEUTROPHILS PERCENT MAN 53 % (41-73); TOTAL CELLS COUNTED 100
--- NOTE | 2021-10-08 06:32 | NUR ---
SHIFT SUMMARY PATIENT REMAINS ALERT AND ORIENTED TO SELF ONLY. PATIENT BECAME AGITATED AGAIN AND ORDERS FOR IV HALDOL GIVEN. 02 SATS 94% ON 10L VIA OXYMIZER. INSPIRATORY WHEEZE T/O. HR SB 50s-70s, BP STABLE. PULSES AND TEMP WNL ON RLE. PAIN MEDS PRN. PATIENT CONTINENT OF BLADDER ONCE AND HAD SEVERAL INCONTINENT VOIDS. REPOSITIONED Q2 HOURS. RESTRAINTS IN PLACE TO PROTECT LINES AND IVs.
--- NOTE | 2021-10-08 14:37 | NUR ---
MIRELLA HAS HAD A BETTER DAY THUS FAR. ASSUMED CARE OF PATIENT AT 0700. HE WAS DROWSY THIS AM. PLACED A NEW IV TO RIGHT HAND SO HE WOULD HAVE TWO IV'S. PATIENT STILL HAS HIS IVF RUNNING D51/2NS AT 100/HR AND MULTIPLE ABX TO FOLLOW TODAY. ONCE HE WOKE HE WAS MORE APPROPRIATE WITH STAFF. HE HAS BEEN DRINKING FLUIDS VERY WELL, ESPECIALLY WATER. HIS VS REMAIN STABLE AND HE IS AFEBRILE. PATIENT HAS HAD FENTANYL ONE TIME FOR MOVEMENT DURING CLEAN UP OF BEDDING AND A BATH. HIS RIGHT LEG HURTS HIM WITH ACTIVITY OTHERWISE HE DOESN'T COMPLAIN OF PAIN. DID PLACE ICE TO HIS RIGHT KNEE. HE HAS HAD 2 LOOSE STOOLS THAT COME WITH URGENCY THUS FAR. HE IS ABLE TO EAT W/O DIFFICULTY BUT HE DOESN'T HAVE HIS TEETH IN AT THE MOMENTS. SO SOFT FOODS FOR NOW. WILL F/U WITH 'Kev ON THE PLAN FOR HIS CARE.
--- NOTE | 2021-10-08 17:35 | NUR ---
END OF SHIFT NOTE MIRELLA HAS BEEN AWAKE ALL DAY. HE HAS BEEN DRINKING WATER AND JUICE AND EATTING PUDDING. HE WANTS TO DRINK LIQUIDS QUICKLY AND HE NEEDS REMINDING TO SLOW DOWN. HE HAS STOOLED AT LEAST 3 TIMES, 1/2 CLUMPS AND 1/2 LOOSE, WITH URGENCY. HE HAS THE D5 1/2 NS AT 100/HR STILL GOING WELL. HIS OXYGEN REQUIRMENTS ARE DOWN TO 6L OXYMIZER SAO2 AT 94-96% STILL TACHYPNIC AT 22-28 RR / MIN. VS OTHERWISE STABLE. RIGHT LEG STILL IN A SPLINT WITH AN BARBARA BANDAGE IN PLACE. TOES ARE WARM TO TOUCH AND HE CAN MOVE THEM. HIS MOTHER WAS AT THE BEDSIDE FOR A SHORT TIME THIS AFTERNOON. PLAN TO MANAGE MEDICATION TX AND DR HOFF WAS CONSULTED BY DR CAPPS TODAY TO ADDRESS HIS RIGHT LEG FX. STARTED GIVING HIM 5MG OF OXYCODONE PO THIS AFTERNOON. HE IS NOT TRYING TO PULL IV'S OR LEADS OFF NOW AND RESTRAINTS ARE OFF SINCE 1300 TODAY. WILL RESUME CARE TILL MASS SPEC ASSUMES CARE AT 1900.
--- NOTE | 2021-10-08 19:30 | NUR ---
ASSUMED CARE PATIENT LYING IN BED AWAKE AND HAS OXYMIZER IN PLACE @ 6LPM, SPO2 IN LOW TO MID 90'S. ZOSYN INF INTO RT HAND 22G IV, D5 1/2NS INF INTO ANTONIO POWER GLIDE. CAST IN PLACE TO RLE. PATIENT GREETS STAFF UPON ENTERING ROOM AND TRACKS TO SOUND. REPORT COMPLETED W/ DAYSHIFT RN.
[2021-10-09 02:13] LABS: BASOPHILS ABSOLUTE AUTO 0.01 K/mm3 (0.00-0.23); BASOPHILS PERCENT AUTO 0 % (0-2); EOSINOPHILS PERCENT AUTO 0 % (0-6); Hematocrit 36.1 % (37.0-53.0); Hemoglobin 12.2 g/dL (13.5-17.5); IMMATURE GRAN ABSOLUTE AUTO 0.09 K/mm3 (0.00-0.10); IMMATURE GRAN PERCENT AUTO 1 % (0-1); LYMPHOCYTES PERCENT AUTO 7 % (21-46); MONOCYTES ABSOLUTE AUTO 0.47 K/mm3 (0.16-1.47); MONOCYTES PERCENT AUTO 5 % (4-13); Mean Corpuscular HGB 32.8 pg (26.0-34.0); Mean Corpuscular HGB Conc 33.8 g/dL (31.5-36.5); Mean Corpuscular Volume 97 fL (80-100); Mean Platelet Volume 10.6 fL (9.1-12.4); NEUTROPHILS PERCENT AUTO 87 % (41-73); Platelet Count 136 K/mm3 (150-400); RDW Coefficient Variation 14.4 % (11.7-14.2); RDW Standard Deviation 51.8 fL (35.1-46.3); Red Blood Cell Count 3.72 M/mm3 (4.30-5.90); White Blood Cell Count 8.87 K/mm3 (4.00-11.30)
[2021-10-09 02:27] LABS: Anion Gap 2 mmol/L (6-16); Blood Urea Nitrogen 18 mg/dL (8-24); Bun/Creatinine Ratio 24.5 (12.0-20.0); CO2, Blood 41 mmol/L (21-32); Calcium, Blood 8.7 mg/dL (8.5-10.1); Chloride, Blood 99 mmol/L (98-108); Creatinine, Blood 0.73 mg/dL (0.60-1.20); Glomerular Filtration Rate >60 (60-); Glucose, Blood 187 mg/dL (70-99); Potassium, Blood 4.1 mmol/L (3.5-5.5); Sodium, Blood 142 mmol/L (136-145)
[2021-10-09 02:28] LABS: Vancomycin, Trough 12.4 ug/mL (5.0-10.0)
--- NOTE | 2021-10-09 06:49 | NUR ---
SHIFT SUMMARY PATIENT REQUIRED ROUTINE PAIN MEDICATION FOR PAIN LEVELS OF 7-10/10 T/O SHIFT. PATIENT WAS ABLE TO USE URINAL AT BEDSIDE AND USE CALL LIGHT APPROPRIATELY. PATIENT PULLED 22G IV OUT OF RT HAND WHILE REPOSITIONING GOWN AND BLANKETS. SPO2 DECREASED THIS MORNING TO 84% AT LOWEST WHILE ON OXYMIZER @ 12LPM. RT CHANGED TO HIFLOW NC W/ SPO2 INCREASED OT 100% ON 10LPM. PATIENT DENIED NAUSEA T/O SHIFT, BUT DID START TO PERSPIRATE. REPORT GIVE TO DAYSHIFT RN
--- NOTE | 2021-10-09 10:00 | NUR ---
[place] of Care: Care assumed at 0700hr. Patient sleeping but easily roused to verbal stimuli. Oriented to self, place, event. Follows simple commands, calm and cooperative with staff. VSS, spO2 92-98% on 8L- HFNC. Lung sounds dim throughout, occasional cough, productive for small amount of thick yellow sputum. Powerglide to ANTONIO patent and intact. Voiding using urinal in bed without difficulty. Splint with BARBARA wrap to rt leg (proximal knee to toes). RT foot cap refill, warmth, and sensation wnl. Rt dorsal pedal pulse strong. Patient diaphoretic with small tremor, afebrile. Patient denies alcohol use, concern for opioid withdrawals r/t amount of oxycodone used at home. Current PRN use of oxycodone and fentanyl also not effective to manage patient pain to rt leg. Contacted Dr. Mahan, who increased prn oxycodone dose and interval. Call light in reach, makes needs known. Will continue to monitor.
--- NOTE | 2021-10-09 10:37 | NUR ---
[place] of Care: care assumed at 0700; pt was awake but is deaf, and nonverbal; patient did not appear to be in pain (FLACC); Lung sounds clear bilaterally, respirations tachypneic but un-labored, currently on RA; BP and HR WNL; ecchymosis around both eyes, left eye swelled shut; cap refill less than 3 seconds; powerglide to CHANDRIKA site is clear and patient; Mild abdominal distention, hyperactive bowel sounds; pt opens eyes and tracks staff, followed commands to squeeze fingers. Increased agitation when needing to void, but after repeat attempts was able to communicate the need to void and used bedside urinal.
--- NOTE | 2021-10-09 18:08 | NUR ---
Shift Summary: No significant changes throughout shift. Pain to rt leg now effectively managed with increase in prn Oxycodone frequency and dose. VSS remain stable, spO2 92-98% on 8L HFNC, no s/s of respiratory distress/dyspnea. No changes to rt leg, warmth, cap-refill, and sensation remain wnl. Clinimix infusion started late this shift as patient refuses most meals. Only taking small amount of ensures and water. Patient c/o no apetite. Continues to void using urinal without difficulty. X2 loose/liquid brown BM's this shift. Call light in reach, makes needs known. Will continue to monitor until report to NOC shift RN.
--- NOTE | 2021-10-09 19:15 | NUR ---
ASSUMED CARE OF PT. HE IS AWAKE AND ALERT, ORIENTED TO ALL EXCEPT DATE HE STATES NOONE HAS TOLD HIM WHAT DAY IT IS. VSS. WILL CONTINUE TO MONITOR.
--- NOTE | 2021-10-10 01:17 | NUR ---
PT HAS EPISODE OF BRADYCARDIA WITH HR IN THE 40'S FOR APPROX 1 MIN WHILE SLEEPING. PT DENIES SOB, CP OR OTHER CONCERNS WHEN AWAKENED. WILL CONTINUE TO MONITOR.
--- NOTE | 2021-10-10 02:12 | NUR ---
PT IS SLEEPING SOUNDLY
[2021-10-10 03:30] LABS: BASOPHILS ABSOLUTE AUTO 0.03 K/mm3 (0.00-0.23); BASOPHILS PERCENT AUTO 0 % (0-2); EOSINOPHILS PERCENT AUTO 0 % (0-6); Hemoglobin 12.4 g/dL (13.5-17.5); IMMATURE GRAN PERCENT AUTO 1 % (0-1); LYMPHOCYTES ABSOLUTE AUTO 0.69 K/mm3 (0.84-5.20); LYMPHOCYTES PERCENT AUTO 5 % (21-46); MONOCYTES ABSOLUTE AUTO 0.92 K/mm3 (0.16-1.47); MONOCYTES PERCENT AUTO 7 % (4-13); Mean Corpuscular HGB 32.5 pg (26.0-34.0); Mean Corpuscular HGB Conc 33.5 g/dL (31.5-36.5); Mean Corpuscular Volume 97 fL (80-100); Mean Platelet Volume 10.1 fL (9.1-12.4); NEUTROPHILS ABSOLUTE AUTO 11.56 K/mm3 (1.96-9.15); NEUTROPHILS PERCENT AUTO 87 % (41-73); Platelet Count 170 K/mm3 (150-400); RDW Coefficient Variation 14.4 % (11.7-14.2); RDW Standard Deviation 51.1 fL (35.1-46.3); Red Blood Cell Count 3.82 M/mm3 (4.30-5.90)
[2021-10-10 03:46] LABS: Anion Gap 4 mmol/L (6-16); Blood Urea Nitrogen 28 mg/dL (8-24); Bun/Creatinine Ratio 38.5 (12.0-20.0); CO2, Blood 38 mmol/L (21-32); Calcium, Blood 8.8 mg/dL (8.5-10.1); Chloride, Blood 98 mmol/L (98-108); Creatinine, Blood 0.73 mg/dL (0.60-1.20); Glomerular Filtration Rate >60 (60-); Glucose, Blood 150 mg/dL (70-99); Potassium, Blood 4.1 mmol/L (3.5-5.5); Sodium, Blood 140 mmol/L (136-145)
--- NOTE | 2021-10-10 05:40 | NUR ---
PT IS AO X 3/4 THROUGHOUT THE NIGHT. STATES HE DOESN'T KNOW WHAT THE DATE IS BECAUSE NOONE HAS TOLD HIM. HE COMMUNICATES NEEDS WELL AND PLEASANTLY. BACK PAIN IS REMEDIED WITH K PAD AND BACK SCRATCHES, AND R LEG PAIN IS TREATED WITH ELEVATION AND PAIN MEDICATION. O2 IS TITRATED DOWN TO 6L HFNC. SPO2 MAINTAINED ABOVE 95%. PT HAS PRODUCTIVE COUGH. HE IS TAKING PO WELL, ATE SANDWICH AND DRINKS WATER. R LEG SPLINT REMAINS UNDISTURBED, CMS AND PULSE INTACT. WILL CONTINUE TO MONITOR AND REPORT TO ONCOMING SHIFT.
--- NOTE | 2021-10-10 07:14 | NUR ---
pt states that he is feeling much better this morning. Vitals stable. Lying in bed, requesting eggs for breakfast. sTates that he hasn't been eating lately because the food was hard and he has no teeth. Diet updated to mechanical soft. Noted coarse productive cough this morning after he sat up in bed. States blood tinge to the white sputum. I only noted angel/white sputum, thick and large amount. States that he uses 2 l/min oxygen at home. He is on 6 l/min this morning. spo2 dropped to 84% while coughing and blowing his nose. He is talking and seems pleasant this morning. Voiding using the urinal, states had one loose BM yesterday evening.
--- NOTE | 2021-10-10 09:03 | NUR ---
Pt c/o pain in RLE, lower part, 8/10. Noted toes are pink, warm with good brisk capillary refill. Pedal pulse palpable. Given PRN oral medications with relief, per pt reduced pain to 6/10.
--- NOTE | 2021-10-10 10:26 | NUR ---
Call to Dr. Stevens's office to report improvement in pt's mental status and ask about possibility of surgical intervention. I was told by the receptionist clerk that Dr. Camp is flying out this morning, and that I should follow with Dr. Llamas, the on-call orthopedist. Call to Dr. Llamas's office and call went to voice mail, and message was left for the surgeon.
--- NOTE | 2021-10-10 10:59 | NUR ---
C/O pain 10/10 in the right leg after repositioning and some activity with [facility] Physical therapist. Given Fentanyl 25 mg for pain; pt reports relief, c/o nausea now. sTates he takes "something twice daily, 30 minutes before he eats" at home.
[2021-10-10 11:09] LABS: Vancomycin, Trough 21.2 ug/mL (5.0-10.0)
--- NOTE | 2021-10-10 11:10 | NUR ---
no prn orders for anti nausea/anti emetics. Call to Dr. Gonzales; he said that he will be here to see the patient in just a few minutes.
--- NOTE | 2021-10-10 12:17 | NUR ---
Pt reports that his stomach upset is "easing up". Oral care and back washed by pt with assist. Declined sponge/bed bath today.
--- NOTE | 2021-10-10 12:52 | NUR ---
Assisted to bedpan.
--- NOTE | 2021-10-10 15:27 | NUR ---
Pt c/o pain underneath his splint behind the right thigh. The pt has been actively self repositioning side to side, but today has not been completely on his side except for when he was assisted on and off the bedpan. Further assessemnt beneath the spint upper edge reveals a dark red lamar where the pt says that it feels that the splint is "digging into me". Dr. Llamas was texted this information. Pt was repositioned to his left side to relieve the pressure from the splint against his thigh. He was given pain medication as well. His sister Yudith is in the room at the time as well. Wound photo documentation completed.
--- NOTE | 2021-10-10 16:24 | NUR ---
Dr Llamas here with a PA to see pt. Right leg splint was removed and knee immobilizer placed by the surgeon and his assistant director of financial aid. Discussed surgery planned for Wednesday. Orders for pt to be NPO after midnight on Wednesday.
--- NOTE | 2021-10-10 17:03 | NUR ---
Right leg remains elevated on pillow. Pt states needs support for the right foot. Using 2 U-shaped pillows, the ankle and foot were supported in alignment with the leg to pt comfort.
--- NOTE | 2021-10-10 19:15 | NUR ---
ASSUMED CARE OF PT. HE IS ALERT AND COMMUNICATES NEEDS WELL. HE CONTINUES TO BE TREMOROUS. NEW SPLINT ON LEG IS CHECKED FOR PRESSURE POINTS AND SOFT BOOT APPLIED TO PREVENT INTERNAL ROTATION OF FOOT THIS CAUSES PT MORE PAIN. CMS INTACT.
--- NOTE | 2021-10-11 06:20 | NUR ---
NO ACUTE CHANGES IN PT CONDITION OVERNIGHT. HIS PAIN IS MANAGED WITH ONLY PO PAIN MEDICATION. PT SLEEPS WELL FOR LONGER PERIODS OF TIME BETWEEN WAKEFULNESS AND ATTRIBUTES THIS TO EATING BETTER. HIS SPO2 IS MAINTAINED IN THE MID 90'S ON 3L O2 BY NC. R LEG IS IN SPLINT, ELEVATED ON A PILLOW, CMS, PULSES, INTACT. WILL CONTINUE TO MONITOR AND REPORT TO ONCOMING SHIFT.
--- NOTE | 2021-10-11 07:06 | NUR ---
Pretty is sitting up in bed, right leg elevated, knee immobilizer in place, and protective "encarnacion boot" on his right foot. Alert, oriented, conversant and cheerful. States that his cough is clearing up, less sputum but with a slight green tinge. Lungs sounds are diminished but no wheezing and only fine inspiratory crackles scattered throughout. States his appetite has been very good. He is drinking coffee this morning and watching TV.
--- NOTE | 2021-10-11 08:48 | NUR ---
C/O pain 8/10 in his right leg; states that his chronic back pain is quite mild. Heating pad remains on back for relief, and oral pain medication was given for the relief of pain in his right leg. States that he has a good appetite this morning.
--- NOTE | 2021-10-11 09:42 | NUR ---
Pt was repositioned to his left side. States he had to adjust to a less steep incline as it was hurting his right leg. At this time he states his positioning is comfortable.
--- NOTE | 2021-10-11 13:55 | NUR ---
Pt educated twice today, once at 0730 and again at 1300 about the importance of repositioning to prevent constant pressure and pressure sores. Explained that the soreness on his posterior thigh yesterday and pressure sore discovered there was due to the splint putting pressure on his leg as his positioning was always in a supine or barely modified supine position. Encouraged the pt to reposition to the left side, and also explained that staff are here to assist with that. He agreed to it today for about 40 minutes. He states that he is used to lying on his back, and doesn't find side-lying very comfortable. he states that he is repositioning his hips independently; however, it is limited of course by his pain and by tolerance of it, as well as limitations to his ability to place pillows and other supports in place by himself.
--- NOTE | 2021-10-11 15:02 | NUR ---
Pt is asking for new [facility]; given Prilosec early to accomodate .
--- NOTE | 2021-10-11 15:23 | NUR ---
Pt working with physical therapist this afternoon while pt's Rudy Robertson was here visiting.
--- NOTE | 2021-10-11 16:41 | NUR ---
Telephone report was given to Maria Del Carmen Majano RN. Pt will be transferring to surgical room 218.
--- NOTE | 2021-10-11 17:39 | NUR ---
PT ARRIVED TO THE ROOM AT APPROXIMATELY 1700. PT IS ALERT AND ORIENTED. RLE ELEVATED ON PILLOWS, KEBEDE BOOT IN PLACE. PT HAS REDDENED AREA ON COCCYX. WILL CONTINUE TO MONITOR UNTIL REPORT TO JASMIN COLLINS.
--- NOTE | 2021-10-11 19:22 | NUR ---
SHIFT SUMMARY PAIN HAS BEEN MANAGED WITH FENTANYL AND OXYCODONE SINCE PT ARRIVED TO HIS ROOM. PT'S RLE ELEVATED ON PILLOWS, KNEE IMMOBILIZER AND KEBEDE BOOT IN PLACE. REPORT GIVEN TO JASMIN COLLINS.
--- NOTE | 2021-10-12 05:40 | NUR ---
SHIFT SUMMARY: PATIENT HAS 2 LUMEN POWERGLIDE TO LEFT AC & RIGHT AC INFUSING WELL. READJUSTED KNEE IMMOBILIZER & KEBEDE BOOT TO ALIGN RIGHT FOOT. GIVEN PAIN MEDICINE X 2. SMALL FREQUENT URINATION WITH CLEAR YELLOW URINE NOTED. PT. AOX4, ABLE TO MAKE NEEDS KNOWN. WILL CONTINUE TO MONITOR.
--- NOTE | 2021-10-12 12:08 | NUR ---
DR. CENTENO ROUNDED HE WAS NOTIFIED OF CHEST PAIN AFTER PT USED INCENTIVE SPIROMETER BUT IT RESOLVED WITHOUT INTERVENTION. PT REPORTED CHEST PAIN TO THIS RN AFTER IT HAD MOSTLY RESOLVED. PT'S VSS. O2 WAS INCREASED FROM 2L TO 3L VIA NC, PT USES 2L O2 AT BASELINE. LUNG SOUNDS CLEAR T/O.
--- NOTE | 2021-10-12 17:59 | NUR ---
SHIFT SUMMARY PAIN HAS BEEN MANAGED WITH PO AND IV PAIN MEDICATION. PT REMAINS ON BEDREST. PLAN FOR SURGERY TOMORROW. PT VOIDS SMALL AMOUNTS FREQUENTLY. BLADDER SCAN DID NO REVEAL ANY RETAINED URINE. WILL MONITOR UNTIL REPORT TO JASMIN COLLINS.
--- NOTE | 2021-10-13 04:45 | NUR ---
SHIFT SUMMARY: PATIENT AOX4, NPO SINCE MIDNIGHT FOR POSSIBLE SURGERY TODAY.RIGHT KNEE IMMOBILIZER & RIGHT FOOT KEBEDE BOOT IN PLACE TO MAINTAIN ALIGNMENT OF RIGHT LEG. COMPLAINTS OF PAIN COVERED WITH PAIN MEDICINE, SEE EMAR. SACRAL AREA HAS MEPILEX ON.RIGHT LEG ELEVATED ON PILLOW. PT. ABLE TO MOVE UPPER PART OF HIS BODY FOR REPOSITIONING.EATING & DRINKING WELL BEFORE NPO. VOIDING WELL IN URINAL OF CLEAR YELLOW URINE.
--- NOTE | 2021-10-13 12:46 | NUR ---
PT. OFF THE FLOOR AT THIS TIME TO SURGERY, VIA BED. OXYGEN REMAINS ON PER NC.
--- NOTE | 2021-10-13 16:50 | NUR ---
PT. RETURN TO ROOM FROM PACU AT 1600. C/O RLE PAIN AND MEDICATED WITH OXY PER ORDER. PRILOSEC GIVEN. SATS ON 6L PER N/C FLUCTUATING BETWEEN 89-93%. AT PRESENT IS 95%. VSS. MOTHER IN ROOM VISITING. CMS INTACT RLE, BARBARA WRAP AND BOOT ON. CALL LIGHT IN REACH. HAS VOID SINCE RETURN CLEAR CANDIS URINE, USING URINAL.
--- NOTE | 2021-10-13 23:52 | NUR ---
MIDNIGHT V/S NOT TAKEN PER PT'S REQUEST NOT TO BOTHER HIM WHEN SLEEPING.
--- NOTE | 2021-10-14 06:06 | NUR ---
SHIFT SUMMARY: PATIENT AOX4, RIGHT KNEE COVERED WITH ACEWRAP & WITH KNEE IMMOBILIZER ON. MOONBOOT TO RIGHT FOOT. COMPLAINTS OF RIGHT KNEE PAIN COVERED WITH PAIN MEDICINE, SEE EMAR. SLEPT WELL LAST NIGHT. EATING & DRINKING WELL. VOIDING WITHOUT PROBLEMS VIA THE URINAL. NO NEW UNUSUALITIES NOTED.
--- NOTE | 2021-10-14 12:39 | NUR ---
10/14/21 1239 Bharti Leon VERIFICATIONS: EDIT CHART.
--- NOTE | 2021-10-14 14:50 | NUR ---
PT IN THIS A.M. AND GOT PATIENT UP TO CHAIR WITH R LEG SUPPORT. TOLERATE SITTING UP IN CHAIR FOR A FEW HOURS. AFTER LUNCH, BACK TO BED WITH OT, REQUESTING PAIN MEDICATION WITH TRANSFERS, GIVEN PER ORDER. MOTHER VISTING IN ROOM AT THIS TIME. CMS+ RLE, BARBARA WRAP AND BOOT IN PLACE. CALL LIGHT IN REACH.
--- NOTE | 2021-10-15 04:33 | NUR ---
SHIFT SUMMARY: PATIENT AOX4, RIGHT KNEE ACEWRAPPED WITH IMMOBILIZER & MOONBOOT TO RIGHT FOOT ON. GIVEN OXYCODONE & FENTANYL PAIN MEDS INTERMITTENTLY PER PT'S REQUEST RELATED TO RIGHT LEG PAIN. EATING & DRINKING WELL. VOIDING WELL VIA THE URINAL. NO NEW ISSUES NOTED.WILL CONTINUE TO MONITOR.
--- NOTE | 2021-10-15 12:16 | NUR ---
DRESSING CHANGE GAUZE DRESSING AND BARBARA WRAP REMOVED AND REPLACED WITH AQUACEL BY DR TALBOT. THIGH LENGTH CRISTIAN HOSE PLACED TO BOTH LEGS AND KNEE IMMOBILIZER REPLACED TO LEFT LEG.
--- NOTE | 2021-10-15 16:17 | NUR ---
MEPILEX TO COCCYX CHANGED AT THIS TIME.
--- NOTE | 2021-10-15 19:03 | NUR ---
SHIFT SUMMARY PATIENT ALERT AND ORIENTED THROUGHOUT SHIFT. TOLERATING REGULAR DIET AND LIQUIDS. RIGHT ORIF REPAIR OF TIB/FIB FX POD 2. DRESSING CHANGED BY DR TALBOT, AQUACEL PLACED, CRISTIAN HOSE PLACED. R KNEE IMMOBILIZER IN PLACE. NWB. SBA WITH FWW AND GAIT BELT TO BATHROOM. 2L O2 VIA NC AT BASELINE. MEICATED FOR PAIN PER EMAR. PLAN TO DISCHARGE TO SNF WHEN BED AVAILABLE. REPORT GIVEN TO [employer]UEL HOUSE ATTENDANT RN. MEPILEX TO NAVYA.
--- NOTE | 2021-10-15 20:47 | NUR ---
PT REQUESTS PAIN MEDS,BUT DECLINES ORAL CARE,HS CARE.ONLY ALLOWS PARTIAL ASSESSMENT DUE TO C/O PAIN.VERB WOULD ALLOW LATER WHEN HE FEELS COMFORTABLE. FEET WARM, BUT UNABLE TO PALPATE PULSE C/O THE CHECKING OF PULSE CAUSES PAIN IN HIS R THIGH.MED PO FOR PAIN.TO ASSESS FURTHER WHEN PT WILL ALLOW PT REFUSES ICE AND SCDS WELL. DISCUSSED RISKS OF ABOVE.
--- NOTE | 2021-10-15 21:02 | NUR ---
PT MED WITH IV SUBLIMAZE FOR BREAKTHROUGH PAIN PER HIS REQUEST. STATES PILLS SHOULD BE EFFECTIVE BY NOW.PT CONT TO REFUSE FURTHER ASSESS AT PRESENT.STATES HE WILL ALLOW FURTHER ASSESS WITH MIDNOC DOSING OF PAIN MEDS.
--- NOTE | 2021-10-16 08:19 | NUR ---
SUMMARY PT REPORS ADEQUATE PAIN CONTROL WITH 2 BILLY AND SUBLIMAZE FOR BREAKTHROUGH. IMMOBILIZER INTACT.PPP BILAT
[2021-10-16 17:10] LABS: Influenza A, PCR NEGATIVE (NEGATIVE); Influenza B, PCR NEGATIVE (NEGATIVE); Resp Syncytial Virus, PCR NEGATIVE (NEGATIVE); SARS-Cov-2 (COVID-19) PCR, MMC NEGATIVE (NEGATIVE)
--- NOTE | 2021-10-16 17:30 | NUR ---
DECREASED SPO2: AT ABOUT 1540 THIS RN CALLED INTO ROOM BY TJ ASHLEY. PT SP02 AT 88-89% ON 4L AND NOT COMING UP AFTER PT ASKED TO DEEP BREATHE. 02 INCREASED TO 5L AND PT GIVEN I.S. PT DENIES CP OR SOB. PT HOB ELEVATED. SP02 CONTINUED TO BE 88-89%, AND 02 INCREASED TO 7L ON HIGH FLOW CANULA AND RT CALLED. RT IN ROOM SHORTLY AFTER AND ALBUTEROL GIVEN, SP02 INCREASED TO 91-92% AT THIS TIME. DR. CENTENO CALLED AND NOTIFIED OF THIS. SEE NEW ORDERS, COVID TEST COLLECTED. PT REPORTED FEELING BETTER AFTER ALBUTEROL. PREDNISONE GIVEN. PT CURRENTLY ON 7L O2 AND SP02 94%, NO COMPLAINT OF SOB. WILL CTM AND ATTEMPT TO WEAN BEFORE SHIFT CHANGE.
--- NOTE | 2021-10-16 18:22 | NUR ---
SUMMARY: PT IS S/P R TIB/FIB ORIF. PT A/O, VSS, NO ACUTE SAFETY CONCERNS AT THIS TIME. SURGICAL SITE WNL, IMMOBOLIZER IN PLACE. MEDICATED FOR PAIN PER EMAR. PT MOVING WELL WITH THERAPY, THERAPY RECOMMENDING HH. ABLE TO WEAN 02 TO 5L WITH SP02 AT 93%, PT COVID NEGATIVE. WILL CTM AND REPORT TO JASMIN COLLINS.
--- NOTE | 2021-10-17 06:47 | NUR ---
SUMMARY PT HAS NOT EQUIRED ANY IV PAIN MEDS TONIGHT.HOPING FOR DISCHARGE HOME TODAY.
[2021-10-17] MEDS ORDERED: PRED20 PO (11:39)
[2021-10-17] MEDS ORDERED: ALBU2.5V5 INH (11:54)
--- NOTE | 2021-10-17 15:30 | NUR ---
Received referral from nurse mall plant caretaker (Baylee Watkins) on 10/17/2021. Patient is to discharge with orders for home health and elected [facility]. Met with patient to further discuss the above. Patient is agreeable to the above. Discussed homebound status definition with patient. Patient verbalized understanding. Discussed what home health is vs what it is not (in home caregivers/housekeeping). Patient verbalized understanding. Discussed the next steps in the process of an initial assessment to determine frequency of visits. Again patient verbalized understanding. Offered a chance for patient to ask questions regarding the above of which there were none. Gathered all supporting documentation for referral (face sheet, face to face, med list, H&P, and most recent PT assessment) and sent to [facility] for review. No further interventions required. Adrienne Perez Referral Liaison
--- NOTE | 2021-10-17 15:56 | NUR ---
DISCHARGE: PACKET PRINTED AND PT EDUCATED. PT GIVEN SCRIPTS AND EXTRA AQUACEL DRESSINGS, NEW MEDICATIONS FAXED. L[place] IN ROOM AT ABOUT 1350 AND PT GIVEN RAISED TOLIET SEAT AND WHEELCHAIR. PT TRANSFERED TO WHEELCHAIR AND LEFT UNIT WITH TJ CHICAS AT ABOUT 1400. PT FAMILY AWARE OF DISCHARGE.
== END 2021-10-17 13:52 | disposition home or self-care (01) | DRG 492 ==
LOC: ER 14:15 → ERHOLD 18:46 → ICUW 18:46 → SURS 18:46 → ICUW 10-07 11:13 → SURS 10-11 17:30
PROVIDERS: Emergency Medicine; Hospitalist; Internal Medicine; Orthopaedic Surgery; Physician Assistant; ADMIT Internal Medicine
PROC: 0QSG04Z Reposition Right Tibia with Internal Fixation Device, Open Approach (ICD-10-PCS; principal; 2021-10-13 13:15)
DX: S82.191A Other fracture of upper end of right tibia, initial encounter for closed fracture (principal); G92.8 Other toxic encephalopathy; J96.21 Acute and chronic respiratory failure with hypoxia; J18.9 Pneumonia, unspecified organism; J96.22 Acute and chronic respiratory failure with hypercapnia; N17.9 Acute kidney failure, unspecified; E87.0 Hyperosmolality and hypernatremia; F11.20 Opioid dependence, uncomplicated; J44.1 Chronic obstructive pulmonary disease with (acute) exacerbation; J45.909 Unspecified asthma, uncomplicated; Z20.822 Contact with and (suspected) exposure to COVID-19; G89.29 Other chronic pain; M54.9 Dorsalgia, unspecified; F32.A Depression, unspecified; I10 Essential (primary) hypertension; T40.601A Poisoning by unspecified narcotics, accidental (unintentional), initial encounter; R74.01 Elevation of levels of liver transaminase levels; E88.09 Other disorders of plasma-protein metabolism, not elsewhere classified; W18.39XA Other fall on same level, initial encounter; G40.909 Epilepsy, unspecified, not intractable, without status epilepticus; S89.291A Other physeal fracture of upper end of right fibula, initial encounter for closed fracture; G43.909 Migraine, unspecified, not intractable, without status migrainosus; K21.9 Gastro-esophageal reflux disease without esophagitis; Z98.890 Other specified postprocedural states; Z88.5 Allergy status to narcotic agent; Z88.8 Allergy status to other drugs, medicaments and biological substances; Z88.6 Allergy status to analgesic agent; Z91.038 Other insect allergy status; Z91.030 Bee allergy status; Z79.01 Long term (current) use of anticoagulants; Z79.899 Other long term (current) drug therapy
CPT/HCPCS: 0202U; 0241U; 29505; 36415; 36600; 51701; 70450; 71045; 71260; 72125; 73590; 73700; 80048; 80053; 80202; 81001; 82803; 83605; 83735; 83880; 84100; 84145; 84484; 85025; 85379; 85610; 87040; 87070; 87205; 93005; 93010; 93308; 93321; 94640; 94667; 94668; 94760; 94762; 96372; 96374; 96375; 96376; 97110; 97116; 97162; 97166; 97530; 97535; 99285-25; A9270; C1713; C1751; G0480; J0171; J0690; J1100; J1630; J1650; J1953; J1956; J2060; J2250; J2310; J2370; J2405; J2543; J2704; J2920; J3010; J3370; J7030; J7040; J7042; J7050; J7120; J7512; Q9967

== ENCOUNTER → 2022-02-22 | Outpatient (CLI) | payer OTHER ==
[~2022-02-22] MED LIST changes: +ALBU2.5V5 INH
[2022-02-22 12:57] LABS: BASOPHILS ABSOLUTE AUTO 0.04 K/mm3 (0.00-0.23); BASOPHILS PERCENT AUTO 0 % (0-2); EOSINOPHILS ABSOLUTE AUTO 0.06 K/mm3 (0.00-0.68); EOSINOPHILS PERCENT AUTO 0 % (0-6); Hematocrit 40.8 % (37.0-53.0); Hemoglobin 13.5 g/dL (13.5-17.5); IMMATURE GRAN ABSOLUTE AUTO 0.07 K/mm3 (0.00-0.10); IMMATURE GRAN PERCENT AUTO 1 % (0-1); LYMPHOCYTES ABSOLUTE AUTO 1.09 K/mm3 (0.84-5.20); LYMPHOCYTES PERCENT AUTO 7 % (21-46); MONOCYTES ABSOLUTE AUTO 2.43 K/mm3 (0.16-1.47); MONOCYTES PERCENT AUTO 16 % (4-13); Mean Corpuscular HGB Conc 33.1 g/dL (31.5-36.5); Mean Corpuscular Volume 97 fL (80-100); Mean Platelet Volume 9.2 fL (9.1-12.4); NEUTROPHILS ABSOLUTE AUTO 11.78 K/mm3 (1.96-9.15); NEUTROPHILS PERCENT AUTO 76 % (41-73); Platelet Count 224 K/mm3 (150-400); RDW Coefficient Variation 13.5 % (11.7-14.2); RDW Standard Deviation 48.3 fL (35.1-46.3); Red Blood Cell Count 4.22 M/mm3 (4.30-5.90); White Blood Cell Count 15.47 K/mm3 (4.00-11.30)
[2022-02-22 13:05] LABS: Albumin, Blood 2.7 g/dL (3.4-5.0); Albumin/Globulin Ratio 0.6 (0.8-1.8); Bilirubin, Total 0.4 mg/dL (0.1-1.0); Bun/Creatinine Ratio 20.2 (12.0-20.0); Calcium, Blood 9.4 mg/dL (8.5-10.1); Creatinine, Blood 0.84 mg/dL (0.60-1.20); Globulin, Blood 4.5 g/dL (2.2-4.0); Potassium, Blood 3.4 mmol/L (3.5-5.5); Total Protein, Blood 7.2 g/dL (6.4-8.2)
== END ==
LOC: LAB SHORT 12:53 → LAB 12:53
PROVIDERS: Physician Assistant
DX: J44.1 Chronic obstructive pulmonary disease with (acute) exacerbation (principal)
CPT/HCPCS: 80053; 85025

== ENCOUNTER 2023-02-26 11:31 | Day surgery (SDC) | payer OTHER ==
[~2023-02-26] VITALS: Ht 182.9 cm; Wt 57.0 kg
[2023-02-26] MEDS ORDERED: FLUT1DIS2 (12:18)
[2023-02-26] MEDS ORDERED: EPIPEN0.3 MG/0.3 (12:18)
[2023-02-26] MEDS ORDERED: OXYC15ER (12:19)
[2023-02-26] MEDS ORDERED: PROM25 (12:19)
[2023-02-26] MEDS ORDERED: COMBIVENT RESPIM4 G1 (12:19)
[2023-02-26] MEDS ORDERED: SUMA25 (12:20)
[2023-02-26 15:42] VITALS: BP 106/76
--- NOTE | 2023-02-26 15:48 | NUR ---
02/26/23 [address] BUTTS TO REVIEW PITURES AND DISCUSS PROCEDURE PRIOR TO PT BEING WALKED OUT IN WC
== END 2023-02-26 15:49 | disposition home or self-care (01) ==
LOC: ORSCSDS 11:31
PROVIDERS: Internal Medicine Gastroenterology
PROC: 0DBN8ZX Excision of Sigmoid Colon, Via Natural or Artificial Opening Endoscopic, Diagnostic (ICD-10-PCS; principal; 2023-02-26 13:00)
PROC: 0DB78ZX Excision of Stomach, Pylorus, Via Natural or Artificial Opening Endoscopic, Diagnostic (ICD-10-PCS; principal; 2023-02-26 13:00)
PROC: 0DB98ZX Excision of Duodenum, Via Natural or Artificial Opening Endoscopic, Diagnostic (ICD-10-PCS; principal; 2023-02-26 13:00)
DX: R10.13 Epigastric pain (principal); Z12.11 Encounter for screening for malignant neoplasm of colon; Z86.010 Personal history of colon polyps; K29.70 Gastritis, unspecified, without bleeding; R11.0 Nausea; K31.7 Polyp of stomach and duodenum; D12.5 Benign neoplasm of sigmoid colon; K21.9 Gastro-esophageal reflux disease without esophagitis; J44.9 Chronic obstructive pulmonary disease, unspecified; Z99.81 Dependence on supplemental oxygen; F17.210 Nicotine dependence, cigarettes, uncomplicated; Z79.01 Long term (current) use of anticoagulants; G40.909 Epilepsy, unspecified, not intractable, without status epilepticus; Z79.899 Other long term (current) drug therapy
CPT/HCPCS: 88305; 88342; A9270; J2001; J2704; J7120

== ENCOUNTER 2023-05-02 13:57 | Emergency (ER) | payer OTHER ==
[~2023-05-02] VITALS: Ht 182.9 cm; Wt 65.8 kg
[~2023-05-02 13:57] MED LIST changes: +COMBIVENT RESPIM4 G1; +FLUT1DIS2; +OXYC15ER; +PROM25; +SUMA25
[2023-05-02 16:05] LABS: Albumin, Blood 3.3 g/dL (3.4-5.0); Albumin/Globulin Ratio 0.9 (0.8-1.8); Bilirubin, Total 0.4 mg/dL (0.1-1.0); Bun/Creatinine Ratio 26.6 (12.0-20.0); Calcium, Blood 8.8 mg/dL (8.5-10.1); Creatinine, Blood 0.72 mg/dL (0.60-1.20); Globulin, Blood 3.8 g/dL (2.2-4.0); Potassium, Blood 4.9 mmol/L (3.5-5.5); Total Protein, Blood 7.1 g/dL (6.4-8.2)
[2023-05-02 16:25] LABS: BASOPHILS ABSOLUTE AUTO 0.03 K/mm3 (0.00-0.23); BASOPHILS PERCENT AUTO 0 % (0-2); EOSINOPHILS ABSOLUTE AUTO 0.06 K/mm3 (0.00-0.68); EOSINOPHILS PERCENT AUTO 1 % (0-6); Hematocrit 40.5 % (37.0-53.0); Hemoglobin 13.4 g/dL (13.5-17.5); IMMATURE GRAN ABSOLUTE AUTO 0.04 K/mm3 (0.00-0.10); IMMATURE GRAN PERCENT AUTO 1 % (0-1); LYMPHOCYTES ABSOLUTE AUTO 1.51 K/mm3 (0.84-5.20); LYMPHOCYTES PERCENT AUTO 18 % (21-46); MONOCYTES ABSOLUTE AUTO 0.87 K/mm3 (0.16-1.47); MONOCYTES PERCENT AUTO 10 % (4-13); Mean Corpuscular HGB 32.6 pg (26.0-34.0); Mean Corpuscular HGB Conc 33.1 g/dL (31.5-36.5); Mean Corpuscular Volume 99 fL (80-100); Mean Platelet Volume 9.6 fL (9.1-12.4); NEUTROPHILS ABSOLUTE AUTO 5.82 K/mm3 (1.96-9.15); NEUTROPHILS PERCENT AUTO 70 % (41-73); Platelet Count 199 K/mm3 (150-400); RDW Coefficient Variation 13.6 % (11.7-14.2); RDW Standard Deviation 49.6 fL (35.1-46.3); Red Blood Cell Count 4.11 M/mm3 (4.30-5.90); White Blood Cell Count 8.33 K/mm3 (4.00-11.30)
[2023-05-02 16:53] LABS: Influenza A, PCR NEGATIVE (NEGATIVE); Influenza B, PCR NEGATIVE (NEGATIVE); Resp Syncytial Virus, PCR NEGATIVE (NEGATIVE); SARS-Cov-2 (COVID-19) PCR, MMC NEGATIVE (NEGATIVE)
[2023-05-02] MEDS ORDERED: PRED20 PO (17:19)
[2023-05-02 17:33] VITALS: BP 109/78
== END 2023-05-02 17:38 | disposition home or self-care (01) ==
LOC: ER 13:57
PROVIDERS: Emergency Medicine
DX: J44.1 Chronic obstructive pulmonary disease with (acute) exacerbation (principal); Z88.5 Allergy status to narcotic agent; Z88.6 Allergy status to analgesic agent; Z91.048 Other nonmedicinal substance allergy status; Z79.51 Long term (current) use of inhaled steroids; Z79.899 Other long term (current) drug therapy; Z20.822 Contact with and (suspected) exposure to COVID-19
CPT/HCPCS: 0241U; 71046; 80053; 83880; 84484; 85025; 93005; 93010; 94640; 96374; 99285-25; A9270; J2930

== ENCOUNTER → 2023-07-09 | Outpatient (CLI) | payer OTHER ==
[2023-07-09 11:39] LABS: BASOPHILS ABSOLUTE AUTO 0.02 K/mm3 (0.00-0.23); BASOPHILS PERCENT AUTO 0 % (0-2); EOSINOPHILS ABSOLUTE AUTO 0.08 K/mm3 (0.00-0.68); EOSINOPHILS PERCENT AUTO 1 % (0-6); Hematocrit 38.8 % (37.0-53.0); Hemoglobin 12.6 g/dL (13.5-17.5); IMMATURE GRAN ABSOLUTE AUTO 0.03 K/mm3 (0.00-0.10); IMMATURE GRAN PERCENT AUTO 0 % (0-1); LYMPHOCYTES ABSOLUTE AUTO 1.68 K/mm3 (0.84-5.20); LYMPHOCYTES PERCENT AUTO 18 % (21-46); MONOCYTES ABSOLUTE AUTO 1.82 K/mm3 (0.16-1.47); MONOCYTES PERCENT AUTO 20 % (4-13); Mean Corpuscular HGB 32.5 pg (26.0-34.0); Mean Corpuscular HGB Conc 32.5 g/dL (31.5-36.5); Mean Corpuscular Volume 100 fL (80-100); Mean Platelet Volume 9.1 fL (9.1-12.4); NEUTROPHILS ABSOLUTE AUTO 5.61 K/mm3 (1.96-9.15); NEUTROPHILS PERCENT AUTO 61 % (41-73); Platelet Count 176 K/mm3 (150-400); RDW Coefficient Variation 12.6 % (11.7-14.2); RDW Standard Deviation 45.9 fL (35.1-46.3); Red Blood Cell Count 3.88 M/mm3 (4.30-5.90); White Blood Cell Count 9.24 K/mm3 (4.00-11.30)
[2023-07-09 11:43] LABS: Bun/Creatinine Ratio 13.5 (12.0-20.0); Calcium, Blood 8.8 mg/dL (8.5-10.1); Creatinine, Blood 1.41 mg/dL (0.60-1.20); Potassium, Blood 3.8 mmol/L (3.5-5.5)
== END | disposition home or self-care (01) ==
LOC: LAB 11:34 → LAB SHORT 11:34
PROVIDERS: Physician Assistant Surgical
DX: G47.34 Idiopathic sleep related nonobstructive alveolar hypoventilation (principal)
CPT/HCPCS: 80048; 83880; 85025

== ENCOUNTER 2023-09-23 09:07 | Day surgery (SDC) | payer OTHER ==
[2023-09-23] VITALS (7 sets, daily range): BP systolic 105–132; BP diastolic 76–91
[~2023-09-23] VITALS: Ht 180.3 cm; Wt 62.0 kg
[~2023-09-23 09:07] MED LIST changes: +Co Q-1030 MG PO; +METO5A PO; +TIZA4 PO; +Vitamin B-12100 MCG PO; +Vitamin C100 M1 PO
--- NOTE | 2023-09-23 10:23 | NUR ---
Pre-Op teaching done. Pt verbalizes understanding. Patient States Post-Procedure ride home has been arranged. PT W INS/EXP WHEEZES T/O, PROVIDER NOTIFIED BUT NO ORDERS GIVEN AT THIS TIME. PT 2L NC AT BASELINE AND HAS SPO2 OF 100% ON 2L NC.
--- NOTE | 2023-09-23 14:27 | NUR ---
Discharge instructions reviewed with patient. Patient verbalizes understanding. Copy given to patient to take home. Patient States Post-Procedure ride home is his brother. Pt's mother is a current hostpital admit. Ride home will happen later today, pt's is going to wait with brother until then. Pt requires 2L O2 baseline. Pt's personal O2 device ran out of batteries this morning before procedure. [facility] called and will provide a small oxygen tank to pt for his trip home. [facility] to mothers room.
== END 2023-09-23 14:50 | disposition home or self-care (01) ==
LOC: ORSCMMR 09:07 → ORD 10:45 → ORSCMMR 10:45
PROVIDERS: Surgery
PROC: 0JB50ZX Excision of Left Neck Subcutaneous Tissue and Fascia, Open Approach, Diagnostic (ICD-10-PCS; principal; 2023-09-23 10:45)
PROC: 0JB70ZX Excision of Back Subcutaneous Tissue and Fascia, Open Approach, Diagnostic (ICD-10-PCS; principal; 2023-09-23 10:45)
DX: L72.0 Epidermal cyst (principal); J44.9 Chronic obstructive pulmonary disease, unspecified; Z79.899 Other long term (current) drug therapy; F17.290 Nicotine dependence, other tobacco product, uncomplicated
CPT/HCPCS: 88304; A9270; J0690; J2250; J2704; J3010; J7120

== ENCOUNTER 2024-01-27 18:56 | Inpatient (IN) | payer OTHER ==
[~2024-01-27] VITALS: Ht 177.8 cm; Wt 65.5 kg
[2024-01-27] VITALS (9 sets, daily range): BP systolic 84–114; BP diastolic 56–83
[~2024-01-27 18:56] MED LIST changes: +Acetaminophen650 M1 PO; +DEPAKOTE ER500 M2 PO; +DILT120 PO; +LEVOFLOXACIN750 M2 PO; +METR500 PO; +NARCAN4 M1; +OMEP20ER PO; +REMERON1510 PO; +ROXICODONE15 MG PO; +TIZANIDINE HCL213 PO
[2024-01-27] MEDS ORDERED: NS 1,000 ML IV SCH ×2 (19:10→20:35)
[2024-01-27] MEDS ORDERED: KETAMINE HCL IV SCH (19:15)
[2024-01-27] MEDS ORDERED: NS IV SCH (19:15)
[2024-01-27 19:21] LABS: Base Excess Venous 21.3 mmol/L; Bicarbonate Venous 42.2 mmol/L (24.0-30.0); Hemoglobin 13.3 g/dL (13.5-17.5); Mean Corpuscular HGB 31.7 pg (26.0-34.0); Mean Corpuscular HGB Conc 31.7 g/dL (31.5-36.5); Mean Corpuscular Volume 100 fL (80-100); PCO2 Venous 60.1 mmHg (38-42); Platelet Count 159 K/mm3 (150-400); RDW Coefficient Variation 15.3 % (11.7-14.2); RDW Standard Deviation 57.3 fL (35.1-46.3); Red Blood Cell Count 4.19 M/mm3 (4.30-5.90); White Blood Cell Count 4.53 K/mm3 (4.00-11.30); pH Blood Venous 7.48 (7.34-7.37)
[2024-01-27 19:25] LABS: Source, Urine Foley catheter
[2024-01-27 19:28] LABS: Appearance, Urine Hazy (Clear); Blood, Urine 2+ (Neg); Color, Urine Yellow (P-Yellow); Glucose Qualitative, Urine Neg (Neg); Ketones, Urine 2+ (Neg); Leukocyte Esterase, Urine 1+ (Neg); Nitrite, Urine Neg (Neg); Protein, Urine 2+ (Neg); Specific Gravity, Urine 1.025 (1.003-1.022); Urobilinogen, Urine NORM (Normal)
[2024-01-27 19:35] LABS: Bilirubin, Urine 1+ (Neg)
[2024-01-27 19:36] LABS: Bacteria Few /hpf; Mucus Light (0-Heavy); Squamous Epithelial Cells Few /hpf (Few)
[2024-01-27 19:38] LABS: Renal Epithelial Rare /hpf (0-Rare)
[2024-01-27 19:39] LABS: Albumin, Blood 2.5 g/dL (3.4-5.0); Albumin/Globulin Ratio 0.6 (0.8-1.8); Bilirubin, Total 0.4 mg/dL (0.1-1.0); Bun/Creatinine Ratio 19.9 (12.0-20.0); Calcium, Blood 9.5 mg/dL (8.5-10.1); Creatinine, Blood 0.86 mg/dL (0.60-1.20); Globulin, Blood 3.9 g/dL (2.2-4.0); Magnesium, Blood 1.9 mg/dL (1.6-2.4); Potassium, Blood 4.5 mmol/L (3.5-5.5); Total Protein, Blood 6.4 g/dL (6.4-8.2)
[2024-01-27 19:40] LABS: U Amphetamine Screen Not Detected; U Barbituate Screen Not Detected; U Benzodiazapine Screen Not Detected; U Buprenorphine Screen Not Detected; U Cannabinoids Screen Not Detected; U Cocaine Screen Not Detected; U Methadone Screen Not Detected; U Methamphetamine Screen Not Detected; U Opiates Screen DETECTED; U Oxycodone Screen DETECTED; U Phencyclidine Screen Not Detected
[2024-01-27 19:59] LABS: BAND PERCENT MAN 18 % (0-8); BASOPHILS PERCENT MAN 0 % (0-2); EOSINOPHILS PERCENT MAN 0 % (0-6); LYMPHOCYTES ABSOLUTE MAN 0.72 K/mm3 (0.84-5.20); LYMPHOCYTES PERCENT MAN 16 % (21-46); METAMYELOCYTE ABSOLUTE MAN 0.04 K/mm3 (0.00-0.00); METAMYELOCYTE PERCENT MAN 1 % (0-0); MONOCYTES ABSOLUTE MAN 0.95 K/mm3 (0.16-1.47); MONOCYTES PERCENT MAN 21 % (4-13); MYELOCYTE ABSOLUTE MAN 0.09 K/mm3 (0.00-0.00); MYELOCYTE PERCENT MAN 2 % (0-0); NEUTROPHILS ABSOLUTE MAN 2.71 K/mm3 (1.96-9.15); SEG NEUTROPHILS PERCENT MAN 42 % (41-73); TOTAL CELLS COUNTED 100
[2024-01-27] MEDS ORDERED: propofoL 100 ML IV SCH (20:00)
[2024-01-27 20:07] LABS: Influenza A, PCR NEGATIVE (NEGATIVE); Influenza B, PCR NEGATIVE (NEGATIVE); Resp Syncytial Virus, PCR NEGATIVE (NEGATIVE); SARS-Cov-2 (COVID-19) PCR, MMC NEGATIVE (NEGATIVE)
[2024-01-27] MEDS ORDERED: CefTRIAXone Sodium 1,000 MG in NS 50 ML IV ONE (20:35)
[2024-01-27] MEDS ORDERED: Azithromycin 500 MG in NS 250 ML IV ONE (20:35)
[2024-01-27] MEDS ORDERED: NS 1,000 ML IV ONE (20:45)
[2024-01-27] MEDS ORDERED: Albuterol 2.5 MG/3 ML VIAL INH PRN (21:00)
[2024-01-27] MEDS ORDERED: Cetylpyridinium Chloride 1 EA MISC MT SCH (21:05)
[2024-01-27] MEDS ORDERED: Ipratropium/Albuterol SulF 2.5-0.5MG/3 ML Amp INH SCH (21:05)
[2024-01-27] MEDS ORDERED: Lactated Ringer's 1,000 ML IV SCH (21:05)
[2024-01-27] MEDS ORDERED: NS 250 ML IV PRN (21:50)
[2024-01-27] MEDS ORDERED: Ampicillin Sod/Sulbactam Sod 3 GM in NS 100 ML IV SCH (22:00)
[2024-01-27] MEDS ORDERED: levETIRAcetam 2,000 MG in NS 100 ML IV SCH (22:00)
[2024-01-27] MEDS ORDERED: NS 500 ML IV ONE (22:05)
[2024-01-28] VITALS (93 sets, daily range): BP systolic 70–139; BP diastolic 41–117
[2024-01-28] MEDS ORDERED: Midazolam HCL 50 MG in NS 40 ML IV PRN (00:15)
[2024-01-28] MEDS ORDERED: LORazepam 2 MG/ML 1ML Injection IV ONE (00:15)
[2024-01-28] MEDS ORDERED: FentaNYL Citrate 50 MCG/ML 2 ML Injection IV PRN (00:15)
[2024-01-28 04:03] LABS: Hemoglobin 12.5 g/dL (13.5-17.5); Mean Corpuscular HGB 31.6 pg (26.0-34.0); Mean Corpuscular HGB Conc 31.3 g/dL (31.5-36.5); Mean Corpuscular Volume 101 fL (80-100); Mean Platelet Volume 10.2 fL (9.1-12.4); Platelet Count 159 K/mm3 (150-400); RDW Coefficient Variation 15.9 % (11.7-14.2); RDW Standard Deviation 59.1 fL (35.1-46.3); Red Blood Cell Count 3.95 M/mm3 (4.30-5.90); White Blood Cell Count 6.16 K/mm3 (4.00-11.30)
[2024-01-28 04:08] LABS: Base Excess Venous 11.5 mmol/L; Bicarbonate Venous 32.8 mmol/L (24.0-30.0); PCO2 Venous 63.3 mmHg (38-42); pH Blood Venous 7.37 (7.34-7.37)
[2024-01-28 04:47] LABS: BAND PERCENT MAN 21 % (0-8); BASOPHILS PERCENT MAN 0 % (0-2); EOSINOPHILS PERCENT MAN 0 % (0-6); LYMPHOCYTES ABSOLUTE MAN 1.84 K/mm3 (0.84-5.20); LYMPHOCYTES PERCENT MAN 30 % (21-46); MONOCYTES PERCENT MAN 26 % (4-13); NEUTROPHILS ABSOLUTE MAN 2.71 K/mm3 (1.96-9.15); SEG NEUTROPHILS PERCENT MAN 23 % (41-73); TOTAL CELLS COUNTED 100
[2024-01-28] MEDS ORDERED: Pantoprazole Sodium 40 MG Injection IV SCH (06:00)
[2024-01-28] MEDS ORDERED: Chlorhexidine Mouth Care 15 ML UDC MT SCH (08:00)
[2024-01-28] MEDS ORDERED: Cetylpyridinium Chloride 1 EA MISC MT SCH (08:20)
[2024-01-28] MEDS ORDERED: Lactated Ringer's 500 ML IV SCH (08:55)
[2024-01-28] MEDS ORDERED: Enoxaparin 40 MG/0.4 ML SYR SC SCH (09:00)
[2024-01-28 09:43] LABS: Magnesium, Blood 1.7 mg/dL (1.6-2.4); Phosphorus, Blood 1.9 mg/dL (2.5-4.9)
[2024-01-28] MEDS ORDERED: LevoFLOXacin 750 MG/D5W 150ML 150 ML IV SCH (10:00)
[2024-01-28] MEDS ORDERED: Ipratropium/Albuterol SulF 2.5-0.5MG/3 ML Amp INH SCH (10:45)
[2024-01-28] MEDS ORDERED: LORazepam 2 MG/ML 1ML Injection IV PRN (10:50)
[2024-01-28] MEDS ORDERED: Hydrogen Peroxide 1.5 % Solution MT SCH ×2 (12:00)
[2024-01-28 12:04] LABS: Acinetobacter baumannii DNA Not Detected copy/mL (NOT DETECT); Enterobacter cloacae DNA Not Detected copy/mL (NOT DETECT); Escherichia coli DNA Not Detected copy/mL (NOT DETECT); Haemophilus influenzae DNA Detected Bin >=10^7 copy/mL (NOT DETECT); Klebsiella aerogenes DNA Not Detected copy/mL (NOT DETECT); Klebsiella oxytoca DNA Not Detected copy/mL (NOT DETECT); Klebsiella pneumoniae DNA Not Detected copy/mL (NOT DETECT); Moraxella catarrhalis DNA Not Detected copy/mL (NOT DETECT); Proteus sp DNA Not Detected copy/mL (NOT DETECT); Pseudomonas aeruginosa DNA Not Detected copy/mL (NOT DETECT); Serratia marcescens DNA Not Detected copy/mL (NOT DETECT); Staphylococcus aureus DNA Not Detected copy/mL (NOT DETECT); Streptococcus agalactiae DNA Not Detected copy/mL (NOT DETECT); Streptococcus pneumoniae DNA Not Detected copy/mL (NOT DETECT)
[2024-01-28 12:05] LABS: Adenovirus DNA Not Detected (NOT DETECT); Chlamydia pneumonia Not Detected (NOT DETECT); Human Coronavirus RNA Not Detected (NOT DETECT); Human Metapneumovirus RNA Not Detected (NOT DETECT); Influenza virus A RNA Not Detected (NOT DETECT); Influenza virus B RNA Not Detected (NOT DETECT); Legionella pneumophila Not Detected (NOT DETECT); Mycoplasma pneumoniae Not Detected (NOT DETECT); Parainfluenza virus RNA Not Detected (NOT DETECT); Respiratory syncytial Vir RNA Not Detected (NOT DETECT); Rhinovirus+Enterovirus RNA Not Detected (NOT DETECT); Streptococcus pyogenes DNA Not Detected copy/mL (NOT DETECT)
[2024-01-28] MEDS ORDERED: Docusate Sodium 100 MG UDC PT PRN (17:00)
[2024-01-28] MEDS ORDERED: Magnesium Hydroxide Conc 10 ML UDC PT PRN (17:00)
[2024-01-28] MEDS ORDERED: Bisacodyl 10 MG Supp PR PRN (17:00)
[2024-01-28] MEDS ORDERED: Thiamine HCl 100 MG Tab PT SCH (17:10)
[2024-01-28] MEDS ORDERED: Potassium Phos/Sodium Phos 250 MG PACK PO SCH (18:00)
[2024-01-28] MEDS ORDERED: Magnesium Sulf 2 GM/Water 50ML 50 ML IV SCH (18:00)
[2024-01-28 20:38] LABS: Bun/Creatinine Ratio 22.7 (12.0-20.0); Calcium, Blood 8.7 mg/dL (8.5-10.1); Creatinine, Blood 0.71 mg/dL (0.60-1.20); Potassium, Blood 3.6 mmol/L (3.5-5.5)
[2024-01-28] MEDS ORDERED: Azithromycin 500 MG in NS 250 ML IV SCH (21:00)
[2024-01-29] VITALS (67 sets, daily range): BP systolic 93–134; BP diastolic 54–108
[2024-01-29 03:41] LABS: Hematocrit 33.9 % (37.0-53.0); Hemoglobin 10.8 g/dL (13.5-17.5); Mean Corpuscular HGB 31.1 pg (26.0-34.0); Mean Corpuscular HGB Conc 31.9 g/dL (31.5-36.5); Mean Corpuscular Volume 98 fL (80-100); Mean Platelet Volume 10.2 fL (9.1-12.4); Platelet Count 171 K/mm3 (150-400); RDW Coefficient Variation 16.2 % (11.7-14.2); RDW Standard Deviation 58.2 fL (35.1-46.3); Red Blood Cell Count 3.47 M/mm3 (4.30-5.90); White Blood Cell Count 6.53 K/mm3 (4.00-11.30)
[2024-01-29 04:11] LABS: Albumin, Blood 1.9 g/dL (3.4-5.0); Albumin/Globulin Ratio 0.6 (0.8-1.8); Bilirubin, Total 0.3 mg/dL (0.1-1.0); Bun/Creatinine Ratio 23.2 (12.0-20.0); Calcium, Blood 8.6 mg/dL (8.5-10.1); Creatinine, Blood 0.69 mg/dL (0.60-1.20); Globulin, Blood 3.3 g/dL (2.2-4.0); Magnesium, Blood 1.9 mg/dL (1.6-2.4); Phosphorus, Blood 1.3 mg/dL (2.5-4.9); Potassium, Blood 3.5 mmol/L (3.5-5.5); Total Protein, Blood 5.2 g/dL (6.4-8.2)
[2024-01-29 04:30] LABS: BAND PERCENT MAN 17 % (0-8); BASOPHILS PERCENT MAN 0 % (0-2); EOSINOPHILS ABSOLUTE MAN 0.06 K/mm3 (0.00-0.68); EOSINOPHILS PERCENT MAN 1 % (0-6); LYMPHOCYTES PERCENT MAN 20 % (21-46); METAMYELOCYTE ABSOLUTE MAN 0.13 K/mm3 (0.00-0.00); METAMYELOCYTE PERCENT MAN 2 % (0-0); MONOCYTES ABSOLUTE MAN 0.91 K/mm3 (0.16-1.47); MONOCYTES PERCENT MAN 14 % (4-13); MYELOCYTE ABSOLUTE MAN 0.06 K/mm3 (0.00-0.00); MYELOCYTE PERCENT MAN 1 % (0-0); NEUTROPHILS ABSOLUTE MAN 4.04 K/mm3 (1.96-9.15); SEG NEUTROPHILS PERCENT MAN 45 % (41-73); TOTAL CELLS COUNTED 100
[2024-01-29] MEDS ORDERED: Potassium Phosphate Dibasic 30 MM in Dextrose 5% 500 ML IV ONE (05:45)
[2024-01-29] MEDS ORDERED: Multivitamins-Minerals Liquid 15 ML Oral Syringe PT SCH (09:00)
[2024-01-29] MEDS ORDERED: Protein Supplement 30 ML UD PT SCH (09:00)
[2024-01-29] MEDS ORDERED: Lactated Ringer's 1,000 ML IV SCH (18:00)
[2024-01-30] VITALS (49 sets, daily range): BP systolic 91–130; BP diastolic 55–83
[2024-01-30] MEDS ORDERED: Dextrose 50% 50 ML Syringe IV ONE (00:40)
[2024-01-30] MEDS ORDERED: Artificial Tears Opth Oint 7 GM BOTHEYES PRN (03:05)
[2024-01-30] MEDS ORDERED: LORazepam 2 MG/ML 1ML Injection IV PRN (03:05)
[2024-01-30] MEDS ORDERED: FentaNYL Citrate 50 MCG/ML 2 ML Injection IV PRN (03:10)
[2024-01-30] MEDS ORDERED: Peg 400/Hypromellose/Glycerin 15 DROP/ML BTL BOTHEYES PRN (03:15)
[2024-01-30 04:24] LABS: BASOPHILS ABSOLUTE AUTO 0.04 K/mm3 (0.00-0.23); BASOPHILS PERCENT AUTO 1 % (0-2); EOSINOPHILS ABSOLUTE AUTO 0.16 K/mm3 (0.00-0.68); EOSINOPHILS PERCENT AUTO 2 % (0-6); Hemoglobin 10.5 g/dL (13.5-17.5); IMMATURE GRAN ABSOLUTE AUTO 0.27 K/mm3 (0.00-0.10); IMMATURE GRAN PERCENT AUTO 3 % (0-1); LYMPHOCYTES ABSOLUTE AUTO 1.45 K/mm3 (0.84-5.20); LYMPHOCYTES PERCENT AUTO 17 % (21-46); MONOCYTES ABSOLUTE AUTO 0.99 K/mm3 (0.16-1.47); MONOCYTES PERCENT AUTO 12 % (4-13); Mean Corpuscular HGB 31.1 pg (26.0-34.0); Mean Corpuscular HGB Conc 32.8 g/dL (31.5-36.5); Mean Corpuscular Volume 95 fL (80-100); NEUTROPHILS ABSOLUTE AUTO 5.72 K/mm3 (1.96-9.15); NEUTROPHILS PERCENT AUTO 66 % (41-73); Platelet Count 206 K/mm3 (150-400); RDW Coefficient Variation 16.3 % (11.7-14.2); RDW Standard Deviation 57.1 fL (35.1-46.3); Red Blood Cell Count 3.38 M/mm3 (4.30-5.90); White Blood Cell Count 8.63 K/mm3 (4.00-11.30)
[2024-01-30 04:44] LABS: Magnesium, Blood 1.7 mg/dL (1.6-2.4)
[2024-01-30 04:52] LABS: Alanine Aminotransfer (ALT/SGP <6 U/L (12-78); Albumin, Blood 1.9 g/dL (3.4-5.0); Albumin/Globulin Ratio 0.6 (0.8-1.8); Alk Phos 48 U/L (50-136); Anion Gap 7 mmol/L (3-11); Aspartate Aminotrans (AST/SGOT 11 U/L (12-37); Bilirubin, Total 0.3 mg/dL (0.1-1.0); Blood Urea Nitrogen 10 mg/dL (8-24); Bun/Creatinine Ratio 13.5 (12.0-20.0); CO2, Blood 33 mmol/L (21-32); Calcium, Blood 8.2 mg/dL (8.5-10.1); Chloride, Blood 107 mmol/L (98-108); Creatinine, Blood 0.74 mg/dL (0.60-1.20); Globulin, Blood 3.1 g/dL (2.2-4.0); Glomerular Filtration Rate 102 (60-); Glucose, Blood 109 mg/dL (70-99); Phosphorus, Blood 3.3 mg/dL (2.5-4.9); Potassium, Blood 3.6 mmol/L (3.5-5.5); Sodium, Blood 143 mmol/L (136-145)
[2024-01-30] MEDS ORDERED: Furosemide 10 MG/ML 4ML Vial IV ONE (08:55)
[2024-01-30] MEDS ORDERED: OxyCODONE HCL 5 MG TAB PO PRN (14:00)
[2024-01-30] MEDS ORDERED: Lidocaine 4% 1 Patch TOP SCH (14:00)
[2024-01-30] MEDS ORDERED: Omeprazole 20 MG CapCR PO SCH (16:30)
[2024-01-30] MEDS ORDERED: Ipratropium/Albuterol SulF 2.5-0.5MG/3 ML Amp INH SCH (19:12)
[2024-01-31 03:40] VITALS: BP 100/71
[2024-01-31 04:36] LABS: Hematocrit 34.7 % (37.0-53.0); Hemoglobin 11.2 g/dL (13.5-17.5); Mean Corpuscular HGB 32.1 pg (26.0-34.0); Mean Corpuscular HGB Conc 32.3 g/dL (31.5-36.5); Mean Corpuscular Volume 99 fL (80-100); Mean Platelet Volume 9.6 fL (9.1-12.4); Platelet Count 219 K/mm3 (150-400); RDW Coefficient Variation 16.4 % (11.7-14.2); RDW Standard Deviation 58.5 fL (35.1-46.3); Red Blood Cell Count 3.49 M/mm3 (4.30-5.90); White Blood Cell Count 10.04 K/mm3 (4.00-11.30)
[2024-01-31 05:12] LABS: Albumin, Blood 1.9 g/dL (3.4-5.0); Albumin/Globulin Ratio 0.5 (0.8-1.8); Bilirubin, Total 0.3 mg/dL (0.1-1.0); Bun/Creatinine Ratio 11.6 (12.0-20.0); Calcium, Blood 7.8 mg/dL (8.5-10.1); Creatinine, Blood 0.69 mg/dL (0.60-1.20); Globulin, Blood 3.5 g/dL (2.2-4.0); Magnesium, Blood 1.6 mg/dL (1.6-2.4); Phosphorus, Blood 2.8 mg/dL (2.5-4.9); Potassium, Blood 3.9 mmol/L (3.5-5.5); Total Protein, Blood 5.4 g/dL (6.4-8.2)
[2024-01-31 05:34] LABS: BAND PERCENT MAN 1 % (0-8); BASOPHILS PERCENT MAN 0 % (0-2); EOSINOPHILS PERCENT MAN 3 % (0-6); LYMPHOCYTES PERCENT MAN 12 % (21-46); METAMYELOCYTE PERCENT MAN 4 % (0-0); MONOCYTES PERCENT MAN 11 % (4-13); MYELOCYTE PERCENT MAN 3 % (0-0); NEUTROPHILS ABSOLUTE MAN 6.72 K/mm3 (1.96-9.15); SEG NEUTROPHILS PERCENT MAN 66 % (41-73); TOTAL CELLS COUNTED 100
[2024-01-31 07:58] VITALS: BP 115/69
[2024-01-31] MEDS ORDERED: Nicotine 21 MG PATCH TOP SCH (09:00)
[2024-01-31] MEDS ORDERED: Acetaminophen 325 MG TABLET PO PRN (15:05)
[2024-01-31 17:11] VITALS: BP 115/75
[2024-01-31 20:00] VITALS: BP 120/85
[2024-01-31] MEDS ORDERED: Lactobacil 2-S.Thermo-Bifido 1 1 Cap PO SCH (21:00)
[2024-01-31] MEDS ORDERED: NS 250 ML IV PRN (21:55)
[2024-02-01 05:58] VITALS: BP 116/77
[2024-02-01 08:09] VITALS: BP 105/76
[2024-02-01] MEDS ORDERED: OxyCODONE HCL 5 MG TAB PO ONE (11:55)
[2024-02-01 16:25] VITALS: BP 113/74
[2024-02-01] MEDS ORDERED: NICO21TP TOP (18:36)
== END 2024-02-01 18:49 | disposition home health service (06) | DRG 871 ==
LOC: ER 18:56 → MEDS 20:33 → ICUE 20:33 → MEDS 01-30 19:49
PROVIDERS: Internal Medicine; Nurse Practitioner Acute Care; Student in an Organized Health Care Education/Training Program; ADMIT Internal Medicine
PROC: 5A1945Z Respiratory Ventilation, 24-96 Consecutive Hours (ICD-10-PCS; principal; 2024-01-27)
PROC: 3E03329 Introduction of Other Anti-infective into Peripheral Vein, Percutaneous Approach (ICD-10-PCS; 2024-01-27)
DX: A41.3 Sepsis due to Hemophilus influenzae (principal); G92.8 Other toxic encephalopathy; J96.21 Acute and chronic respiratory failure with hypoxia; J96.22 Acute and chronic respiratory failure with hypercapnia; J14 Pneumonia due to Hemophilus influenzae; J44.0 Chronic obstructive pulmonary disease with (acute) lower respiratory infection; Z16.29 Resistance to other single specified antibiotic; Z99.11 Dependence on respirator [ventilator] status; T40.601A Poisoning by unspecified narcotics, accidental (unintentional), initial encounter; K21.9 Gastro-esophageal reflux disease without esophagitis; G40.909 Epilepsy, unspecified, not intractable, without status epilepticus; R65.20 Severe sepsis without septic shock; E83.39 Other disorders of phosphorus metabolism; M51.9 Unspecified thoracic, thoracolumbar and lumbosacral intervertebral disc disorder; D64.9 Anemia, unspecified; M19.90 Unspecified osteoarthritis, unspecified site; I95.9 Hypotension, unspecified; F11.10 Opioid abuse, uncomplicated; I50.9 Heart failure, unspecified; F32.A Depression, unspecified; I48.0 Paroxysmal atrial fibrillation; F10.20 Alcohol dependence, uncomplicated; G43.909 Migraine, unspecified, not intractable, without status migrainosus; G89.29 Other chronic pain; M54.9 Dorsalgia, unspecified; M25.551 Pain in right hip; F17.210 Nicotine dependence, cigarettes, uncomplicated; J43.9 Emphysema, unspecified; Z71.6 Tobacco abuse counseling; Z99.81 Dependence on supplemental oxygen; Z88.8 Allergy status to other drugs, medicaments and biological substances; Z88.6 Allergy status to analgesic agent; Z88.5 Allergy status to narcotic agent; Z91.038 Other insect allergy status; Z79.52 Long term (current) use of systemic steroids; Z79.899 Other long term (current) drug therapy
CPT/HCPCS: 0241U; 31500; 36415; 51702; 71045; 80048; 80053; 81001; 82803; 82947; 83735; 83880; 84100; 84484; 85025; 87070; 87077; 87086; 87185; 87205; 87449; 87633; 93005; 93010; 94002; 94003; 94640; 94664; 94760; 94762; 96360-59; 96361-59; 97110; 97162; 97165; 97530; 97535; 99291-25; 99292; A9270; C1751; C9113; J0295; J0456; J1650; J1940; J1953; J1956; J2060; J2250; J2704; J3010; J3475; J7030; J7040; J7050; J7060; J7120